=== PATIENT | female | born 1995 | race African-American/Black ===

== ENCOUNTER 2016-10-15 23:39 | Inpatient (IN) | payer BC ==
[~2016-10-15] VITALS: Ht 170.2 cm; Wt 95.3 kg
[~2016-10-15 23:39] MED LIST: HYDROCODON-ACE1 EA15 ORAL; MACROBID100 MG ORAL
[2016-10-15 23:50] VITALS: BP 127/87
[2016-10-16] VITALS (7 sets, daily range): BP systolic 101–122; BP diastolic 46–66
[2016-10-16] MEDS ORDERED: Acetaminophen 500mg (ES) tab ORAL ONE (00:15)
[2016-10-16] MEDS ORDERED: cefTRIAXone 2 GM in NS 110 ML IV SCH (00:15)
[2016-10-16] MEDS ORDERED: Vancomycin 1.5gm/D5W 300ml 325 ML IVPB ONE (00:15)
[2016-10-16] MEDS ORDERED: HYDROmorphone 1mg/ml Carpuject IVP ONE ×2 (00:15→02:15)
[2016-10-16 00:48] LABS: MEAN CORPUSCULAR HEMOGLOBIN 26.1 PG (27.0-31.0); MEAN CORPUSCULAR HGB CONC 33.2 G/DL (32.0-36.0); MEAN CORPUSCULAR VOLUME 79 FL (80-99); PLATELET COUNT 386 K/UL (150-450); RED BLOOD COUNT 4.73 M/UL (4.20-5.40); RED CELL DISTRIBUTION WIDTH 11.8 % (11.6-14.8)
[2016-10-16 00:51] LABS: APPEARANCE,URINE CLEAR; KETONES,URINE 3+ (NEGATIVE); LEUKOCYTE ESTERASE ,URINE NEGATIVE (NEGATIVE); NITRITE,URINE NEGATIVE (NEGATIVE); PH,URINE 8 (4.5-8.0); PROTEIN,URINE 1+ (NEGATIVE); UROBILINOGEN,URINE 4 MG/DL (0.0-1.0)
[2016-10-16 00:59] LABS: INR 1.1 (0.9-1.1); PROTHROMBIN TIME 11.6 SEC (9.30-11.50)
[2016-10-16 01:00] LABS: WHITE BLOOD COUNT 22.5 K/UL (4.8-10.8)
[2016-10-16 01:03] LABS: ALANINE AMINOTRANSFERASE 45 U/L (3-33); ALBUMIN/GLOBULIN RATIO 0.8 (1.0-2.7); ANION GAP 19 (5-15); ASPARTATE AMINO TRANSFERASE 46 U/L (5-40); CALCIUM 8.7 mg/dL (8.6-10.2); CARBON DIOXIDE 21 mEQ/L (20-30); CHLORIDE 93 mEQ/L (98-107); CREATININE 0.7 mg/dL (0.5-0.9); GLOMERULAR FILTRATION RATE > 60 mL/min (>60); HEMOLYSIS 0; POTASSIUM 3.9 mEQ/L (3.4-4.9); SODIUM 133 mEQ/L (135-145); TOTAL PROTEIN 7.1 g/dL (6.6-8.7); TROPONIN I < 0.30 ng/mL (<=0.30)
[2016-10-16 01:11] LABS: BACTERIA,URINE FEW /HPF; SQUAMOUS EPITHELIAL CELL,UR MANY /LPF (NONE/OCC); WBC,URINE 0-2 /HPF (0 - 2)
--- NOTE | 2016-10-16 01:14 | Emergency Room Report ---
History of Present Illness General Chief Complaint: Abdominal Pain Source: Patient Present Illness HPI This is a 21-year-old female with a history significant for Dr. neda neely when she was 16. She was in the hospital for over a month because she has some paralysis with it. She required physical therapy. She covered completely. She presents with chief complaint of any pain. Also complaining of neck and back pain. Onset today. Yesterday she had some cough and headache. She went to another hospital and was told that she had strep throat and sinusitis. She was prescribed a seven-day course of antibiotics. [place] like it was Levaquin since she was only taking it once a day. She woke up today with severe pain. 10 out of 10. Has nausea and vomiting. Any movement hurts. Allergies: Coded Allergies: PENICILLINS (Unverified Allergy, Unknown, 03/03/15) Patient History Past Medical History: see triage record, old chart reviewed Past Surgical History: none Pertinent Family History: none Social History: Denies: smoking Last Menstrual Period: Aug Now: No Immunizations: other Reviewed Nursing Documentation: PMH: Agreed, PSxH: Agreed Nursing Documentation-PMH Past Medical History: No Stated History Review of Systems Constitutional: Reports: fever, weakness Eye: Denies: blurred vision, eye pain ENT: Denies: ear pain, nose congestion, throat swelling Respiratory: Denies: cough, shortness of breath Cardiovascular: Denies: chest pain, palpitations Gastrointestinal: Denies: abdominal pain, diarrhea, nausea, vomiting Musculoskeletal: Denies: back pain, joint pain Skin: Denies: rash Neurological: Reports: headache Endocrine: Denies: increased thirst, increased urine Hematologic/Lymphatic: Denies: easy bruising All Other Systems: negative except mentioned in HPI Physical Exam Vital Signs Date Time Temp Pulse Resp B/P Pulse Ox O2 Delivery O2 Flow Rate FiO2 10/15/16 23:40 97.7 104 16 124/61 97 Room Air vitals with fever of 101 initially Sp02 EP Interpretation: reviewed, normal General Appearance: well appearing, alert, moderate distress Head: normocephalic, atraumatic Eyes: bilateral eye EOMI, bilateral eye PERRL ENT: hearing grossly normal, normal pharynx Neck: tender - Diffuse tenderness Respiratory: chest non-tender, lungs clear, normal breath sounds Cardiovascular #1: regular rate, rhythm, no murmur Gastrointestinal: normal bowel sounds, non tender, no mass, no organomegaly, no bruit, non-distended Musculoskeletal: back normal, normal range of motion Neurologic: alert, oriented x3 Psychiatric: anxious Skin: warm/dry Procedures Lumbar Puncture Consent: Written Location: L4-L5 Anesthesia: 1% Lidocaine Volume Anesthetic (ccs): 10 Prep: bedadine, chlorhexidine Needle Size: 3 1/2 Post-Procedure: recumbent position Attempts: Other - 2 Complications: none Patient Tolerated: Other - I attempted twice but was unsuccessful. Patient is very nervous. Did not want any more attempts. Medical Decision Making Diagnostic Impression: Primary Impression: Sepsis Qualified Codes: A41.9 - Sepsis, unspecified organism Additional Impressions: Headache Qualified Codes: R51 - Headache Meningitis ER Course Patient presents with fever and headache and stiffness. She does have a significant leukocytosis. I treated her as possible meningitis. She's feeling better now. Able to move her neck. Still has significant pain. Was unable to get CSF fluid for testing. When it for IV antibiotics and further workup. She may need CT guided lumbar puncture. Lab Results Impression labs with leukocytosis Rhythm Strip Diag. Results EP Interpretation: yes Rate: 70 Rhythm: NSR, no PVC's, no ectopy Chest X-Ray Diagnostic Results EP Interpretation: Yes Findings: no consolidation, no effusion, no pneumothorax, no acute cardiopulmonary disease Number of Views: 1 CT/MRI/US Diagnostic Results CT/MRI/US Diagnostic Results : Imaging Test Ordered: CT head Impression negative per radiologist Last Vital Signs Date Time Temp Pulse Resp B/P Pulse Ox O2 Delivery O2 Flow Rate FiO2 10/15/16 23:40 97.7 104 16 124/61 97 Room Air Status: improved Disposition: ADMITTED INPATIENT Condition: Stable SILVER SHAFFER M.D. Oct 16, 2016 01:14
[2016-10-16 01:37] LABS: BAND NEUTROPHILS % (MANUAL) 6 % (0-8); BASOPHILS % (MANUAL) 0 % (0-2); EOSINOPHILS % (MANUAL) 0 % (0-3); LYMPHOCYTES % (MANUAL) 12 % (20-45); NEUTROPHILS % (MANUAL) 75 % (45-75); PLATELET ESTIMATE ADEQUATE; PLATELET MORPHOLOGY NORMAL; TOTAL CELLS COUNTED 100
[2016-10-16] MEDS: Morphine Sulfate 2mg/ml Inj IVP PRN ×2 (07:43→08:16)
--- NOTE | 2016-10-16 09:25 | Diagnostic Imaging Report ---
Indication: Headache Technique: Contiguous 5 mm thick transaxial imaging of the head obtained in a Siemens Sensation [address] scanner. Soft tissue and bone windows generated. Total Dose length Product (DLP): [address] Dose Index Volume (CTDIvol): 70.38 mGy Comparison: none Findings: The size and configuration of the cortical sulci, basal cisterns, and ventricles are within normal limits for age. There is no mass effect, midline shift, or edema identified. There is no evidence of acute hemorrhage or abnormal intra-axial or extra-axial fluid collections. The bones and soft tissues are unremarkable. Impression: No mass effect, edema or acute bleed. [facility] has communicated the preliminary results to the Emergency Department. Their findings are largely concordant with this report. The CT scanner at [facility] is accredited by the [employer] and the scans are performed using protocols designed to limit radiation exposure to as low as reasonably achievable to attain images of sufficient resolution adequate for diagnostic evaluation.
[2016-10-16] MEDS: HYDROmorphone 1mg/ml Carpuject IVP PRN ×4 (10:46→22:46)
--- NOTE | 2016-10-16 10:52 | Diagnostic Imaging Report ---
Indication: Dyspnea Comparison: None A single view chest radiograph was obtained. Findings: Cardiomediastinal appearance is within normal limits for age. Pulmonary vascularity is appropriate. The diaphragmatic contour is smooth and costophrenic angles are sharp. No pleural effusions are identified. The bones are unremarkable. Impression: No acute findings
--- NOTE | 2016-10-16 14:31 | Infectious Diseases Prog Note ---
Assessment/Plan Problems: (1) Meningitis Assessment & Plan: no LP was done, and patient refused any further attempt, will order MRI of the brain and cervical spine to rule out infectious process, and start vancomycin, ceftriaxon and acyclovir empirically , and monitor symptoms, recommend neurology consult. too late to give steroids since she already received antibiotics in ED. will screen for herpes with serology (2) Sepsis Assessment & Plan: due to #1, will send blood culture and start wide spectrum antibiotics therapy. (3) Leukocytosis Assessment & Plan: due to the above, await blood culture , continue wide spectrum antibiotics. (4) Headache Assessment & Plan: due to meningitis, continue pain management as per primary. Subjective Allergies: Coded Allergies: PENICILLINS (Unverified Allergy, Unknown, 03/03/15) Objective Vital Signs Last 24 Hour Vital Signs Date Time Temp Pulse Resp B/P Pulse Ox O2 Delivery O2 Flow Rate FiO2 10/16/16 12:00 97.7 88 19 105/59 96 Room Air 10/16/16 08:00 98.1 90 20 104/66 100 Room Air 10/16/16 03:52 99.2 88 17 118/66 100 Room Air 10/16/16 03:45 98.6 83 20 101/51 95 Room Air 10/16/16 03:40 99.2 88 18 119/64 100 Room Air 10/16/16 02:50 99.2 10/16/16 01:50 99.2 90 17 118/66 100 Room Air 10/16/16 01:49 99.2 10/16/16 01:10 99.2 10/15/16 23:50 101.5 107 25 127/87 100 Room Air 10/15/16 23:40 97.7 104 16 124/61 97 Room Air Height (Feet): 5 Height (Inches): 7.00 Weight (Pounds): 210 Microbiology Date/Time Source Procedure Growth Status 10/16/16 01:20 Nasal Nares Influenza Types A,B Antigen (BEN) - Final Complete Laboratory Tests Test 10/16/16 00:35 White Blood Count 22.5 K/UL (4.8-10.8) *H Red Blood Count 4.73 M/UL (4.20-5.40) Hemoglobin 12.4 G/DL (12.0-16.0) Hematocrit 37.2 % (37.0-47.0) Mean Corpuscular Volume 79 FL (80-99) L Mean Corpuscular Hemoglobin 26.1 PG (27.0-31.0) L Mean Corpuscular Hemoglobin Concent 33.2 G/DL (32.0-36.0) Red Cell Distribution Width 11.8 % (11.6-14.8) Platelet Count 386 K/UL (150-450) Mean Platelet Volume 6.0 FL (6.5-10.1) L Neutrophils (%) (Auto) % (45.0-75.0) Lymphocytes (%) (Auto) % (20.0-45.0) Monocytes (%) (Auto) % (1.0-10.0) Eosinophils (%) (Auto) % (0.0-3.0) Basophils (%) (Auto) % (0.0-2.0) Differential Total Cells Counted 100 Neutrophils % (Manual) 75 % (45-75) Lymphocytes % (Manual) 12 % (20-45) L Monocytes % (Manual) 7 % (1-10) Eosinophils % (Manual) 0 % (0-3) Basophils % (Manual) 0 % (0-2) Band Neutrophils 6 % (0-8) Platelet Estimate Adequate Platelet Morphology Normal Red Blood Cell Morphology Normal Prothrombin Time 11.6 SEC (9.30-11.50) H Prothromb Time International Ratio 1.1 (0.9-1.1) Activated Partial Thromboplast Time 36 SEC (23-33) H Urine Color Yellow Urine Appearance Clear Urine pH 8 (4.5-8.0) Urine Specific [place] 1.015 (1.005-1.035) Urine Protein 1+ (NEGATIVE) H Urine Glucose (UA) Negative (NEGATIVE) Urine Ketones 3+ (NEGATIVE) H Urine Occult Blood 1+ (NEGATIVE) H Urine Nitrite Negative (NEGATIVE) Urine Bilirubin Negative (NEGATIVE) Urine Urobilinogen 4 MG/DL (0.0-1.0) H Urine Leukocyte Esterase Negative (NEGATIVE) Urine RBC 2-4 /HPF (0 - 2) H Urine WBC 0-2 /HPF (0 - 2) Urine Squamous Epithelial Cells Many /LPF (NONE/OCC) H Urine Bacteria Few /HPF (NONE) Urine HCG, Qualitative Negative CSF Herpes Simplex II DNA (PCR) Pending Sodium Level 133 mEQ/L (135-145) L Potassium Level 3.9 mEQ/L (3.4-4.9) Chloride Level 93 mEQ/L (98-107) L Carbon Dioxide Level 21 mEQ/L (20-30) Anion Gap 19 (5-15) H Blood Urea Nitrogen 7 mg/dL (7-23) Creatinine 0.7 mg/dL (0.5-0.9) Estimat Glomerular Filtration Rate > 60 mL/min (>60) Glucose Level 112 mg/dL (74-106) H Lactic Acid Level 0.80 mmol/L (0.66-2.22) Calcium Level 8.7 mg/dL (8.6-10.2) Total Bilirubin 0.4 mg/dL (0.0-1.2) Aspartate Amino Transf (AST/SGOT) 46 U/L (5-40) H Alanine Aminotransferase (ALT/SGPT) 45 U/L (3-33) H Alkaline Phosphatase 122 U/L (35-104) H Troponin I < 0.30 ng/mL (<=0.30) Total Protein 7.1 g/dL (6.6-8.7) Albumin 3.3 g/dL (3.5-5.2) L Globulin 3.8 g/dL Albumin/Globulin Ratio 0.8 (1.0-2.7) L Herpes Simplex Virus I IgM Ab (IFA) Pending Herpes Simplex Virus II IgM Ab (IFA Pending Herpes Simplex Virus I DNA (PCR) Pending Current Medications Medications (Trade) Dose Ordered Sig/Jw Route PRN Reason Start Time Stop Time Status Last Admin Dose Admin Acyclovir/Dextrose (Zovirax/D5W) 275 ml @ 275 mls/hr Q8HR IV 10/16/16 15:00 11/15/16 14:59 Ceftriaxone Sodium 2 gm/ Dextrose 110 ml @ 220 mls/hr EVERY 12 HOURS IVPB 10/16/16 14:30 10/23/16 14:29 Hydromorphone HCl 1 mg 1 mg Q4H PRN IVP For Pain 10/16/16 10:45 10/23/16 10:44 10/16/16 10:46 Ondansetron HCl (Zofran) 4 mg Q6H PRN IVP Nausea & Vomiting 10/16/16 07:30 11/15/16 07:29 10/16/16 07:46 Sodium Chloride 1,000 ml @ 100 mls/hr Q10H IV 10/16/16 11:00 11/15/16 10:59 10/16/16 11:35 Vancomycin HCl (Vanco rx to dose) 1 ea DAILY PRN MISC . 10/16/16 13:15 11/15/16 13:14 Vancomycin HCl 1 gm/Dextrose 275 ml @ 183.708 mls/hr Q8HR IVPB 10/16/16 15:00 10/21/16 14:59 Aliyah Cervantes M.D. Oct 16, 2016 14:31
[2016-10-16] MEDS: cefTRIAXone 2 GM in D5W 110 ML IVPB SCH ×2 (14:42→21:27)
[2016-10-16] MEDS: ACYCLOVIR IV SCH ×2 (16:30→22:04)
[2016-10-16] MEDS: D5W IV SCH ×2 (16:30→22:04)
[2016-10-16] MEDS: Cyclobenzaprine 10mg Tab ORAL SCH (18:25)
[2016-10-16] MEDS: Vancomycin 1 GM in D5W 275 ML IVPB SCH ×2 (18:27→22:05)
--- NOTE | 2016-10-16 19:49 | Consultation ---
DATE OF CONSULTATION: REQUESTING PHYSICIAN: Skip Rod M.D. REASON FOR CONSULTATION: Headache, leukocytosis, neck pain, possible meningitis. Recommendation for antibiotic therapy. family. HISTORY OF PRESENT ILLNESS: The patient is a 21-year-old female with history of meningitis when she was 16 presented to [facility] for worsening headache, neck pain, and sore throat. The patient was seen in urgent care and she was told that she had a strep throat and sinusitis. She was given Levaquin oral antibiotic therapy for seven days course and discharged home. Her headache and neck stiffness did not improve at all but got worse. She developed fever of 102.8 with stiffness in her neck to the point that she could not move it. She also had photophobia so she came into the emergency room at [facility] for further evaluation and management. Multiple attempts for LP was failed in the emergency room and the patient refused any further attempts. She had a head CT scan did not show any acute pathology. The patient received antibiotics in the emergency room and I was consulted by the primary provider for antibiotics recommendation and further management. The patient denied any recent travel or sick contacts. She had similar symptom when she was 16 and she was treated for meningitis and spend one month almost in the hospital. REVIEW OF SYSTEMS: A 14-point of systems reviewed were all negative apart from the one I mentioned above in my history and physical PAST MEDICAL HISTORY: Significant for meningitis at the age of 16 otherwise unremarkable. PAST SURGICAL HISTORY: Negative. MEDICATIONS: The patient received vancomycin and ceftriaxone in the emergency room. For the rest of the medications please refer to MAR ALLERGIES: She is allergic to penicillin with rash, and blisters. SOCIAL HISTORY: She works as a bar manager. Denied using any tobacco, drugs, or alcohol. FAMILY HISTORY: Negative for recurrent infection or immunocompromised condition. PHYSICAL EXAMINATION: VITAL SIGNS: Temperature 97.7, pulse 88, respiratory rate 19, blood pressure 105/59, O2 saturation 96% on room air. GENERAL: This is a young female, obese, lying in bed, complaining of headache and stiffness in her neck. Alert in pain, not in acute distress. HEENT: Normocephalic and atraumatic. Pupil could not evaluate reactivity due to photophobia. Moist oral mucosa. No exudate or thrush. Normal tonsils. No ulceration. NECK: Stiff and tender with decreased range of motion. No lymphadenopathy. CARDIOVASCULAR: Regular rate and rhythm. No murmur or gallop. LUNGS: Clear bilaterally. Decreased breathing sound on the bases. No wheezing or rhonchi. ABDOMEN: Soft. Not tender or distended. Positive bowel sounds. No hepatosplenomegaly or ascites. EXTREMITIES: No edema or cyanosis. NEUROLOGIC: Unable to perform, the refused to cooperate with the neuro exam. LABORATORY DATA: White count 22.5, hemoglobin 12.4, hematocrit 37.2, and platelet count of 386,000. BUN 7 creatinine 0.7. AST 46, ALT 45, alkaline phosphatase 122. Urinalysis showed negative nitrite, negative leukocyte esterase, many squamous epithelial cells, and negative nitrate. Microbiology screening for influenza A and B was negative. Imaging, head CT scan showed no mass effect, edema, or acute bleed. Chest x-ray showed no acute findings. ASSESSMENT AND PLAN: 1. Acute meningitis with headache, neck stiffness and photophobia. No evidence of bleeding intracranially on CT scan. No LP was done unfortunately. We will order MRI of the brain and cervical spine to rule out infectious process and start the patient empirically on ceftriaxone and vancomycin and acyclovir. We will send serology for herpes hoping that will help to make a diagnosis. We will monitor her symptoms closely. We will recommend Neurology consultation. At this point, too late to give steroid since already received antibiotics in the emergency room. Continue neuro checks. 2. Sepsis due to acute meningitis. Send blood culture. Continue wide-spectrum antibiotics therapy. 3. Leukocytosis due to the above. Monitor WBC and culture. Continue antibiotics. 4. Headache with neck stiffness due to possible meningitis. Continue pain management as primary provider and we will image the brain and the neck with an MRI to rule out any acute infectious process. Thank you for the consultation. Aliyah Cervantes M.D. DR: Jaky JOB#: [id number] CC: PILAR
--- NOTE | 2016-10-16 21:01 | Nephrology Progress Note ---
Assessment/Plan Problem List: (1) Leukocytosis (2) Sepsis (3) Meningitis (4) Headache Plan ID consult. Empiric abx. f/u cx's. Pending MRI. Pain management. Neuro consult. Subjective Subjective 21 y/o f with a hx of meningitis who presented to the ED c/o fever, worsening headache, neck pain and sore throat. Patient was empirically treated for strep throat with levofloxacin with no relief. She also reports photophobia. LP was attempted in the ED but was unsuccessful. Patient was given empiric abx and admitted for further care. Objective Objective Last 24 Hour Vital Signs Date Time Temp Pulse Resp B/P Pulse Ox O2 Delivery O2 Flow Rate FiO2 10/16/16 19:17 97.7 10/16/16 19:17 97.7 10/16/16 19:17 97.7 10/16/16 19:00 100.0 72 20 122/50 100 Room Air 10/16/16 16:00 98.1 84 20 107/46 99 Room Air 10/16/16 12:00 97.7 88 19 105/59 96 Room Air 10/16/16 08:00 98.1 90 20 104/66 100 Room Air 10/16/16 03:52 99.2 88 17 118/66 100 Room Air 10/16/16 03:45 98.6 83 20 101/51 95 Room Air 10/16/16 03:40 99.2 88 18 119/64 100 Room Air 10/16/16 02:50 99.2 10/16/16 01:50 99.2 90 17 118/66 100 Room Air 10/16/16 01:49 99.2 10/16/16 01:10 99.2 10/15/16 23:50 101.5 107 25 127/87 100 Room Air 10/15/16 23:40 97.7 104 16 124/61 97 Room Air Intake and Output 10/15/16 10/16/16 19:00 07:00 Intake Total 110 ml Balance 110 ml Intake Oral 0 ml IV Total 110 ml # Voids 2 Laboratory Tests 10/16/16 00:35: White Blood Count 22.5*H, Red Blood Count 4.73, Hemoglobin 12.4, Hematocrit 37.2 , Mean Corpuscular Volume 79L, Mean Corpuscular Hemoglobin 26.1L, Mean Corpuscular Hemoglobin Concent 33.2, Red Cell Distribution Width 11.8, Platelet Count 386, Mean Platelet Volume 6.0L, Neutrophils (%) (Auto) , Lymphocytes (%) ( Auto) , Monocytes (%) (Auto) , Eosinophils (%) (Auto) , Basophils (%) (Auto) , Differential Total Cells Counted 100, Neutrophils % (Manual) 75, Lymphocytes % ( Manual) 12L, Monocytes % (Manual) 7, Eosinophils % (Manual) 0, Basophils % ( Manual) 0, Band Neutrophils 6, Platelet Estimate Adequate, Platelet Morphology Normal, Red Blood Cell Morphology Normal, Prothrombin Time 11.6H, Prothromb Time International Ratio 1.1, Activated Partial Thromboplast Time 36H, Urine Color Yellow, Urine Appearance Clear, Urine pH 8, Urine Specific [place] 1.015, Urine Protein 1+H, Urine Glucose (UA) Negative, Urine Ketones 3+H, Urine Occult Blood 1+H, Urine Nitrite Negative, Urine Bilirubin Negative, Urine Urobilinogen 4H, Urine Leukocyte Esterase Negative, Urine RBC 2-4H, Urine WBC 0-2, Urine Squamous Epithelial Cells ManyH, Urine Bacteria Few, Urine HCG, Qualitative Negative, CSF Herpes Simplex II DNA (PCR) [Pending], Sodium Level 133L, Potassium Level 3.9, Chloride Level 93L, Carbon Dioxide Level 21, Anion Gap 19H , Blood Urea Nitrogen 7, Creatinine 0.7, Estimat Glomerular Filtration Rate > 60 , Glucose Level 112H, Lactic Acid Level 0.80, Calcium Level 8.7, Total Bilirubin 0.4, Aspartate Amino Transf (AST/SGOT) 46H, Alanine Aminotransferase ( ALT/SGPT) 45H, Alkaline Phosphatase 122H, Troponin I < 0.30, Total Protein 7.1, Albumin 3.3L, Globulin 3.8, Albumin/Globulin Ratio 0.8L, Herpes Simplex Virus I IgM Ab (IFA) [Pending], Herpes Simplex Virus II IgM Ab (IFA [Pending], Herpes Simplex Virus I DNA (PCR) [Pending] Height (Feet): 5 Height (Inches): 7.00 Weight (Pounds): 210 General Appearance: no apparent distress Cardiovascular: normal rate, regular rhythm Respiratory/Chest: lungs clear Abdomen: non tender, soft Extremities: non-pitting Neurologic: alert CLAUDIA PAIGE Oct 16, 2016 21:01
--- NOTE | 2016-10-16 21:39 | History and Physical Report ---
DATE OF ADMISSION: 10/16/2016 HISTORY OF PRESENT ILLNESS: This is an elderly 21 years old female, who came to the emergency room with severe headache, nausea, vomiting, unable to tolerate diet, and also complained severe neck pain. PAST MEDICAL HISTORY: Significant for dysmenorrhea. ALLERGIES: No known allergies. FAMILY HISTORY: Noncontributory. SOCIAL HISTORY: The patient lives with mother. Denies any smoking and drinking. Denies any illegal drugs REVIEW OF SYSTEMS: Feeling excruciating neck pain for the last three days. No fever. No chills. Having also migraine headache and with recurrent nausea and vomiting. PHYSICAL EXAMINATION: GENERAL: This is a young female who is currently awake and comfortable and has been sleeping well. VITAL SIGNS: Blood pressure is 100/40, pulse 110, respirations 18, no fever. SKIN: Good skin turgor. HEENT: AT/NC. EOMI. PERRLA. NECK: Supple. No JVD. CHEST: Bilaterally clear. CARDIOVASCULAR: Regular rhythm. No gallop. No murmur. ABDOMEN: Soft. Positive bowel sounds. Nontender. EXTREMITIES: CCE. NEUROLOGICAL: No focal deficit. LABORATORY DATA: White count is normal. ASSESSMENT: 1. Severe intractable headache, unlikely meningitis. 2. Overweight. We will admit on the medical floor. 3. Nausea and vomiting. 4. Dehydration. PLAN: We will admit on medical floor. Start IV fluids, IV Zofran. Pain Medicine and PT/OT. Also, added Neurontin and gabapentin. Cruz Capone M.D. DR: ADILENE JOB#: [id number] CC:
[2016-10-17] VITALS: BP 115/64
[2016-10-17] MEDS: HYDROmorphone 1mg/ml Carpuject IVP PRN ×6 (02:45→23:09)
[2016-10-17] MEDS: ACYCLOVIR IV SCH ×3 (05:22→22:49)
[2016-10-17] MEDS: D5W IV SCH ×3 (05:22→22:49)
[2016-10-17] MEDS: Vancomycin 1 GM in D5W 275 ML IVPB SCH ×3 (05:22→14:00)
[2016-10-17 08:00] VITALS: BP 116/63
[2016-10-17] MEDS: cefTRIAXone 2 GM in D5W 110 ML IVPB SCH ×2 (09:15→20:04)
[2016-10-17] MEDS: Cyclobenzaprine 10mg Tab ORAL SCH ×2 (09:16→17:54)
[2016-10-17] MEDS ORDERED: Tubing IV Secondary IV ONE ×2 (10:32→10:33)
[2016-10-17] MEDS ORDERED: 1/2 NS 1000ml IV ONE ×2 (10:32→15:55)
[2016-10-17] MEDS ORDERED: NS 275ml ONE (10:33)
[2016-10-17 12:00] VITALS: BP 139/71
--- NOTE | 2016-10-17 13:39 | Progress Note ---
DATE: 10/17/2016 NOTE: "POOR AUDIO QUALITY" OBJECTIVE: The patient is a young female, who is currently in bed. Comfortable. neck pain and headache is improved. Improved blood pressure. VITAL SIGNS: Stable. CHEST: Bilaterally clear. CARDIOVASCULAR: Regular rhythm. ABDOMEN: Soft. EXTREMITIES: No CCE NEUROLOGIC: No focal deficit. ASSESSMENT AND PLAN: 1. Neck pain. 2. neuralgia. 3. Meningismus. 4. Obesity. We will currently continue Neurontin. Continue Flexeril. Continue Dilaudid for pain. PT and OT. Regular diet. All discussed with the charge nurse. The patient also complaining of heartburn. We will give her Mylanta. Follow up the laboratory. Cruz Capone M.D. DR: Carolyn JOB#: [id number] CC:
[2016-10-17 16:00] VITALS: BP 132/55
[2016-10-17] MEDS: Vancomycin 1.5 GM in D5W 325 ML IVPB SCH ×2 (16:07→23:59)
--- NOTE | 2016-10-17 17:11 | Infectious Diseases Prog Note ---
Assessment/Plan Problems: (1) Meningitis Assessment & Plan: improving with current antibiotics regimen, LP was not done in ED, and patient refused any further attempt, MRI of the brain and cervical spine to rule out infectious process is pending , continue vancomycin , ceftriaxon and acyclovir empirically , and monitor symptoms, recommend neurology consult. too late to give steroids since she already received antibiotics in ED. will screen for herpes with serology (2) Sepsis Assessment & Plan: due to #1, will send blood culture and start wide spectrum antibiotics therapy. (3) Leukocytosis Assessment & Plan: due to the above, await blood culture , continue wide spectrum antibiotics. (4) Headache Assessment & Plan: due to meningitis, continue pain management as per primary. Subjective Constitutional: Reports: anorexia HEENT: Reports: other - photophobia Gastrointestinal/Abdominal: Reports: constipation, nausea Neurologic: Reports: headache, other - neck stiffness, weakness Musculoskeletal: Reports: pain Allergies: Coded Allergies: PENICILLINS (Unverified Allergy, Unknown, 03/03/15) Objective Vital Signs Last 24 Hour Vital Signs Date Time Temp Pulse Resp B/P Pulse Ox O2 Delivery O2 Flow Rate FiO2 10/17/16 15:16 98.1 10/17/16 12:00 98.1 70 20 139/71 100 Room Air 10/17/16 10:15 97.5 10/17/16 10:15 97.5 10/17/16 08:00 97.5 81 19 116/63 98 Room Air 10/17/16 00:00 98.9 82 22 115/64 100 Room Air 10/16/16 19:00 100.0 72 20 122/50 100 Room Air Height (Feet): 5 Height (Inches): 7.00 Weight (Pounds): 210 General Appearance: WD/WN, no acute distress HEENT: normocephalic, atraumatic, anicteric, mucous membranes moist Respiratory/Chest: chest wall non-tender, lungs clear, normal breath sounds, no respiratory distress, no accessory muscle use Cardiovascular: normal peripheral pulses, normal rate, regular rhythm, no gallop/murmur, no JVD Abdomen: normal bowel sounds, soft, non tender, no organomegaly, non distended , no mass, no scars Extremities: no cyanosis, no clubbing Skin: no rash, no lesions Neurologic/Psychiatric: prestidigitator II-XII grossly normal, no motor/sensory deficits, alert, oriented x 3, responsive Microbiology Date/Time Source Procedure Growth Status 10/15/16 23:05 Blood Blood Culture - Preliminary NO GROWTH AFTER 24 HOURS Resulted 10/15/16 23:05 Blood Blood Culture - Preliminary NO GROWTH AFTER 24 HOURS Resulted 10/16/16 01:20 Nasal Nares Influenza Types A,B Antigen (BEN) - Final Complete Laboratory Tests Test 10/17/16 13:40 Vancomycin Level Trough 6.0 ug/mL (5.0-12.0) Current Medications Medications (Trade) Dose Ordered Sig/Jw Route PRN Reason Start Time Stop Time Status Last Admin Dose Admin Acyclovir/Dextrose (Zovirax/D5W) 275 ml @ 275 mls/hr Q8HR IV 10/16/16 15:00 11/15/16 14:59 10/17/16 13:17 Al Hydroxide/Mg Hydroxide 30 ml 30 ml Q6H PRN ORAL HEART BURN 10/17/16 11:30 11/16/16 11:29 Ceftriaxone Sodium 2 gm/ Dextrose 110 ml @ 220 mls/hr EVERY 12 HOURS IVPB 10/16/16 14:30 10/23/16 14:29 10/17/16 09:15 Cyclobenzaprine HCl (Flexeril) 10 mg BID ORAL 10/16/16 18:00 11/15/16 17:59 10/17/16 09:16 Gabapentin (Neurontin) 600 mg BID ORAL 10/16/16 18:00 11/15/16 17:59 10/17/16 09:16 Hydromorphone HCl 1 mg 1 mg Q4H PRN IVP For Pain 10/16/16 10:45 10/23/16 10:44 10/17/16 14:46 Ondansetron HCl (Zofran) 4 mg Q6H PRN IVP Nausea & Vomiting 10/16/16 07:30 11/15/16 07:29 10/17/16 02:54 Sodium Chloride 1,000 ml @ 100 mls/hr Q10H IV 10/16/16 11:00 11/15/16 10:59 10/17/16 05:37 Vancomycin HCl (Vanco rx to dose) 1 ea DAILY PRN MISC . 10/16/16 13:15 11/15/16 13:14 Vancomycin HCl/ Dextrose (Vancomycin/D5W) 325 ml @ 217.109 mls/hr Q8H IVPB 10/17/16 16:00 10/22/16 15:59 10/17/16 16:07 Aliyah Cervantes M.D. Oct 17, 2016 17:11
[2016-10-17 20:21] VITALS: BP 121/68
--- NOTE | 2016-10-17 23:11 | Nephrology Progress Note ---
Assessment/Plan Problem List: (1) Leukocytosis (2) Sepsis (3) Meningitis (4) Headache Plan ID following. on droplet precautions. Empiric abx. f/u cx's. Pending MRI. Pain management. Neuro consult. Subjective Subjective afebrile. still with headache but better. Objective Objective Last 24 Hour Vital Signs Date Time Temp Pulse Resp B/P Pulse Ox O2 Delivery O2 Flow Rate FiO2 10/17/16 20:21 98.1 74 20 121/68 99 Room Air 10/17/16 18:53 98.1 10/17/16 18:53 98.1 10/17/16 18:53 98.1 10/17/16 16:00 98.1 82 19 132/55 100 Room Air 10/17/16 12:00 98.1 70 20 139/71 100 Room Air 10/17/16 08:00 97.5 81 19 116/63 98 Room Air 10/17/16 00:00 98.9 82 22 115/64 100 Room Air Intake and Output 10/16/16 10/17/16 19:00 07:00 Intake Total 905 ml 1763.705 ml Output Total 2 ml Balance 903 ml 1763.705 ml Intake Oral 120 ml 720 ml IV Total 785 ml 1043.705 ml Output Urine Total 2 ml # Voids 5 Laboratory Tests 10/17/16 13:40: Vancomycin Level Trough 6.0 Height (Feet): 5 Height (Inches): 7.00 Weight (Pounds): 210 General Appearance: no apparent distress Cardiovascular: normal rate, regular rhythm Respiratory/Chest: lungs clear Abdomen: non tender, soft CLAUDIA PAIGE Oct 17, 2016 23:11
[2016-10-18] VITALS: BP 114/56
[2016-10-18] MEDS: HYDROmorphone 1mg/ml Carpuject IVP PRN ×5 (03:03→21:12)
[2016-10-18 04:59] VITALS: BP 124/73
[2016-10-18] MEDS: ACYCLOVIR IV SCH ×3 (05:25→21:12)
[2016-10-18] MEDS: D5W IV SCH ×3 (05:25→21:12)
[2016-10-18 07:05] LABS: BASOPHILS % (AUTO) 0.4 % (0.0-2.0); EOSINOPHILS % (AUTO) 1.4 % (0.0-3.0); LYMPHOCYTES % (AUTO) 21.2 % (20.0-45.0); MEAN CORPUSCULAR HEMOGLOBIN 25.8 PG (27.0-31.0); MEAN CORPUSCULAR HGB CONC 32.5 G/DL (32.0-36.0); MEAN CORPUSCULAR VOLUME 79 FL (80-99); MEAN PLATELET VOLUME 5.7 FL (6.5-10.1); MONOCYTES % (AUTO) 10.5 % (1.0-10.0); NEUTROPHILS % (AUTO) 66.5 % (45.0-75.0); PLATELET COUNT 423 K/UL (150-450); RED BLOOD COUNT 4.57 M/UL (4.20-5.40); RED CELL DISTRIBUTION WIDTH 12.1 % (11.6-14.8); WHITE BLOOD COUNT 14.6 K/UL (4.8-10.8)
[2016-10-18] MEDS: Cyclobenzaprine 10mg Tab ORAL SCH ×2 (07:30→17:51)
[2016-10-18] MEDS: cefTRIAXone 2 GM in D5W 110 ML IVPB SCH (07:30)
[2016-10-18 07:37] LABS: ANION GAP 12 (5-15); CALCIUM 8.9 mg/dL (8.6-10.2); CARBON DIOXIDE 28 mEQ/L (20-30); CHLORIDE 97 mEQ/L (98-107); CREATININE 0.8 mg/dL (0.5-0.9); GLOMERULAR FILTRATION RATE > 60 mL/min (>60); HEMOLYSIS 0; SODIUM 137 mEQ/L (135-145)
[2016-10-18 08:10] VITALS: BP 123/52
[2016-10-18] MEDS: Vancomycin 1.5 GM in D5W 325 ML IVPB SCH ×2 (08:48→16:04)
--- NOTE | 2016-10-18 13:51 | Nephrology Progress Note ---
Assessment/Plan Problem List: (1) Headache (2) Leukocytosis (3) Sepsis (4) Meningitis Plan ID F/U Continue abx per ID Empiric abx. Pending MRI. result Continue pain management. AM labs Subjective Constitutional: Denies: chills, diaphoresis, fever, malaise, no symptoms, other , weakness HEENT: Reports: other - c/o headache Genitourinary: Denies: burning, discharge, flank pain, frequency, hematuria, incontinence, no symptoms, other, pain, urgency Neurologic/Psychiatric: Reports: headache Subjective In bed, states that she just got back from MRI and that she has a headache Objective Objective Last 24 Hour Vital Signs Date Time Temp Pulse Resp B/P Pulse Ox O2 Delivery O2 Flow Rate FiO2 10/18/16 11:49 97.7 10/18/16 08:10 97.7 71 20 123/52 99 Room Air 10/18/16 08:01 97.7 10/18/16 08:01 97.7 10/18/16 04:59 99.0 85 20 124/73 99 Room Air 10/18/16 00:00 96.0 83 22 114/56 98 Room Air 10/17/16 20:21 98.1 74 20 121/68 99 Room Air 10/17/16 16:00 98.1 82 19 132/55 100 Room Air Intake and Output 10/17/16 10/18/16 19:00 07:00 Intake Total 1705.000 ml 1875.000 ml Balance 1705.000 ml 1875.000 ml Intake Oral 360 ml 240 ml IV Total 1345.000 ml 1635.000 ml # Voids 5 7 Laboratory Tests 10/18/16 06:10: White Blood Count 14.6H, Red Blood Count 4.57, Hemoglobin 11.8L, Hematocrit 36.3L, Mean Corpuscular Volume 79L, Mean Corpuscular Hemoglobin 25.8L, Mean Corpuscular Hemoglobin Concent 32.5, Red Cell Distribution Width 12.1, Platelet Count 423, Mean Platelet Volume 5.7L, Neutrophils (%) (Auto) 66.5, Lymphocytes ( %) (Auto) 21.2, Monocytes (%) (Auto) 10.5H, Eosinophils (%) (Auto) 1.4, Basophils (%) (Auto) 0.4, Sodium Level 137, Potassium Level 4.0, Chloride Level 97L, Carbon Dioxide Level 28, Anion Gap 12, Blood Urea Nitrogen 4L, Creatinine 0.8, Estimat Glomerular Filtration Rate > 60, Glucose Level 128H, Calcium Level 8.9 Height (Feet): 5 Height (Inches): 7.00 Weight (Pounds): 210 General Appearance: alert EENT: normal ENT inspection Neck: normal alignment, supple, normal inspection Cardiovascular: regular rhythm, no JVD Respiratory/Chest: lungs clear, normal breath sounds, no respiratory distress Abdomen: non tender, soft, no organomegaly Extremities: non-tender, normal inspection, no calf tenderness Neurologic: alert, oriented x 3, responsive, normal mood/affect Virginie Hernandez N.P. Oct 18, 2016 13:50
--- NOTE | 2016-10-18 14:06 | Diagnostic Imaging Report ---
Indication: Severe headache and neck pain. Technique: The head was imaged in a 1.5 Olamide magnet. Sequences obtained include sagittal and axial T1 FLAIR, axial T2 fast spin echo with fat saturation, axial T2 FLAIR, diffusion and ADC map. Gadolinium-enhanced axial and coronal T1 FLAIR obtained also. Comparison: None Findings: The size, contour, and configuration of the sulci, ventricles, and basal cisterns appear normal. Otto-white differentiation is normal. There is no restricted diffusion. There is no mass effect, midline shift, edema, or hemorrhage. There are no abnormal extra-axial or intra-axial fluid collections. The corpus callosum is unremarkable. The brainstem and cerebellum are unremarkable. The sella is unremarkable. Bone marrow signal within the visualized osseous structures appears age appropriate and unremarkable otherwise. Mucosal thickening noted in ethmoid sinus cells sinusitis. No abnormal enhancement is identified. Impression: Negative MRI brain with and without contrast. Mild sinusitis
--- NOTE | 2016-10-18 14:38 | Diagnostic Imaging Report ---
Indication: Neck pain and severe headache Technique: MRI examination of the cervical spine was performed in a 1.5 Olamide magnet. Sequences obtained include sagittal and axial T1 and T2 fast spin echo, and sagittal STIR. Sagittal and axial T1 fast spin-echo with fat saturation obtained after intravenous gadolinium administration. Comparison: none Findings: Bone marrow signal and alignment are normal. The configuration and height of the vertebral bodies and intervertebral discs are normal. There is no epidural fluid collection, cord or neural impingement identified. The spinal cord is normal in appearance. Anterior to the upper part of the cervical spine from about C1 arch to C5 there is T2 hyperintense retropharyngeal edema versus fluid collection. Nature of this is unknown, but retropharyngeal abscess is the main consideration. Evaluation with contrast-enhanced CT of the neck is recommended. Impression: Retropharyngeal edema versus abscess C1-C5. Further evaluation with contrast-enhanced CT of the neck is recommended. Normal cervical spine
[2016-10-18 16:00] VITALS: BP 97/72
--- NOTE | 2016-10-18 17:17 | Infectious Diseases Prog Note ---
Assessment/Plan Problems: (1) Meningitis Assessment & Plan: improving with current antibiotics regimen, LP was not done in ED, and patient refused any further attempt, MRI of the brain was normal, but cervical spine MRI showed possible retropharyngeal abscess , so will order neck CT with contrast, and broaden her antibiotics regimen to include cefepime and flagyl, and continue vancomycin with acyclovir for now, she agreed to have LP done by IR today . recommend neurology and ENT consult. (2) Sepsis Assessment & Plan: due to #1, will send blood culture and start wide spectrum antibiotics therapy. (3) Leukocytosis Assessment & Plan: due to the above, await blood culture , continue wide spectrum antibiotics. (4) Headache Assessment & Plan: due to meningitis, continue pain management as per primary. (5) Retropharyngeal abscess Assessment & Plan: will order CT neck with contrast to confirm, and broaden antibiotics regimen, recommend ENT consult Subjective Constitutional: Reports: anorexia, fatigue HEENT: Reports: congestion, other - stiff neck, and headache Gastrointestinal/Abdominal: Reports: nausea, vomiting Neurologic: Reports: headache, weakness Musculoskeletal: Reports: pain Allergies: Coded Allergies: PENICILLINS (Unverified Allergy, Unknown, 03/03/15) Objective Vital Signs Last 24 Hour Vital Signs Date Time Temp Pulse Resp B/P Pulse Ox O2 Delivery O2 Flow Rate FiO2 10/18/16 16:00 98.1 76 18 97/72 99 Room Air 10/18/16 11:49 97.7 10/18/16 08:10 97.7 71 20 123/52 99 Room Air 10/18/16 08:01 97.7 10/18/16 08:01 97.7 10/18/16 04:59 99.0 85 20 124/73 99 Room Air 10/18/16 00:00 96.0 83 22 114/56 98 Room Air 10/17/16 20:21 98.1 74 20 121/68 99 Room Air Height (Feet): 5 Height (Inches): 7.00 Weight (Pounds): 210 General Appearance: WD/WN, no acute distress HEENT: normocephalic, atraumatic, anicteric, mucous membranes moist Respiratory/Chest: chest wall non-tender, lungs clear, normal breath sounds, no respiratory distress, no accessory muscle use Cardiovascular: normal peripheral pulses, normal rate, regular rhythm, no gallop/murmur, no JVD Abdomen: normal bowel sounds, soft, non tender, no organomegaly, non distended , no mass Extremities: no cyanosis, no clubbing Skin: no rash, no lesions, no ulcers Neurologic/Psychiatric: alert, oriented x 3, responsive, normal mood/affect Microbiology Date/Time Source Procedure Growth Status 10/15/16 23:05 Blood Blood Culture - Preliminary NO GROWTH AFTER 48 HOURS Resulted 10/15/16 23:05 Blood Blood Culture - Preliminary NO GROWTH AFTER 48 HOURS Resulted 10/16/16 01:20 Nasal Nares Influenza Types A,B Antigen (BEN) - Final Complete Laboratory Tests Test 10/18/16 06:10 White Blood Count 14.6 K/UL (4.8-10.8) H Red Blood Count 4.57 M/UL (4.20-5.40) Hemoglobin 11.8 G/DL (12.0-16.0) L Hematocrit 36.3 % (37.0-47.0) L Mean Corpuscular Volume 79 FL (80-99) L Mean Corpuscular Hemoglobin 25.8 PG (27.0-31.0) L Mean Corpuscular Hemoglobin Concent 32.5 G/DL (32.0-36.0) Red Cell Distribution Width 12.1 % (11.6-14.8) Platelet Count 423 K/UL (150-450) Mean Platelet Volume 5.7 FL (6.5-10.1) L Neutrophils (%) (Auto) 66.5 % (45.0-75.0) Lymphocytes (%) (Auto) 21.2 % (20.0-45.0) Monocytes (%) (Auto) 10.5 % (1.0-10.0) H Eosinophils (%) (Auto) 1.4 % (0.0-3.0) Basophils (%) (Auto) 0.4 % (0.0-2.0) Sodium Level 137 mEQ/L (135-145) Potassium Level 4.0 mEQ/L (3.4-4.9) Chloride Level 97 mEQ/L (98-107) L Carbon Dioxide Level 28 mEQ/L (20-30) Anion Gap 12 (5-15) Blood Urea Nitrogen 4 mg/dL (7-23) L Creatinine 0.8 mg/dL (0.5-0.9) Estimat Glomerular Filtration Rate > 60 mL/min (>60) Glucose Level 128 mg/dL (74-106) H Calcium Level 8.9 mg/dL (8.6-10.2) Current Medications Medications (Trade) Dose Ordered Sig/Jw Route PRN Reason Start Time Stop Time Status Last Admin Dose Admin Acyclovir/Dextrose (Zovirax/D5W) 275 ml @ 275 mls/hr Q8HR IV 10/16/16 15:00 11/15/16 14:59 10/18/16 14:28 Al Hydroxide/Mg Hydroxide 30 ml 30 ml Q6H PRN ORAL HEART BURN 10/17/16 11:30 11/16/16 11:29 10/18/16 00:58 Cyclobenzaprine HCl (Flexeril) 10 mg BID ORAL 10/16/16 18:00 11/15/16 17:59 10/18/16 07:30 Gabapentin (Neurontin) 600 mg BID ORAL 10/16/16 18:00 11/15/16 17:59 10/18/16 07:30 Hydromorphone HCl 1 mg 1 mg Q4H PRN IVP For Pain 10/16/16 10:45 10/23/16 10:44 10/18/16 16:05 Ondansetron HCl (Zofran) 4 mg Q6H PRN IVP Nausea & Vomiting 10/16/16 07:30 11/15/16 07:29 10/18/16 13:27 Sodium Chloride 1,000 ml @ 100 mls/hr Q10H IV 10/16/16 11:00 11/15/16 10:59 10/17/16 20:04 Vancomycin HCl (Vanco rx to dose) 1 ea DAILY PRN MISC . 10/16/16 13:15 11/15/16 13:14 Vancomycin HCl/ Dextrose (Vancomycin/D5W) 325 ml @ 217.109 mls/hr Q8H IVPB 10/17/16 16:00 10/22/16 15:59 10/18/16 16:04 Aliyah Cervantes M.D. Oct 18, 2016 17:17
[2016-10-18] MEDS: Cefepime HCl 2 GM in D5W 110 ML IVPB SCH (18:52)
[2016-10-18] MEDS: metroNIDAZOLE 500mg 100 ML IVPB SCH ×2 (19:45→22:34)
[2016-10-18 20:00] VITALS: BP 122/72
--- NOTE | 2016-10-18 20:38 | Progress Note ---
SUBJECTIVE: This is a 21-year-old female, who has a recurrent nausea, vomiting, headache, and neck pain. The patient unable to tolerate diet. She has been throw up one time. The patient also was found to have urinary tract infection, has been taking antibiotics and ID consult was obtained. The patient is going to go for LP. Currently, no fever and no chills. OBJECTIVE: VITAL SIGNS: Blood pressure 100/40, pulse 74, and respirations 18. SKIN: Good skin turgor. HEENT: NAD. CHEST: Bilateral clear. CARDIOVASCULAR: Regular rhythm. No gallop. No murmur. ABDOMEN: Soft. EXTREMITIES: CCE. NEUROLOGIC: No focal deficit. ASSESSMENT AND PLAN: 1. Recurrent headache. 2. Possible meningitis. 3. Urinary tract infection. 4. Recurrent nausea and vomiting. 5. Abdominal pain. We will continue IV fluid. Start IV antibiotics. ID is on consult. Continue Neurontin and ibuprofen. Cruz Capone M.D. DR: KEYLA JOB#: [id number] CC:
[2016-10-19] VITALS: BP 121/75
[2016-10-19] MEDS: HYDROmorphone 1mg/ml Carpuject IVP PRN ×4 (01:48→18:57)
[2016-10-19] MEDS: Vancomycin 1250mg/D5W 275ml IVPB SCH ×4 (03:35→16:33)
[2016-10-19 03:37] VITALS: BP 123/68
[2016-10-19] MEDS: D5W IV SCH ×3 (05:12→22:46)
[2016-10-19] MEDS: ACYCLOVIR IV SCH ×3 (05:12→22:46)
[2016-10-19 05:27] LABS: BASOPHILS % (AUTO) 0.4 % (0.0-2.0); EOSINOPHILS % (AUTO) 1.4 % (0.0-3.0); LYMPHOCYTES % (AUTO) 16.5 % (20.0-45.0); MEAN CORPUSCULAR HEMOGLOBIN 25.6 PG (27.0-31.0); MEAN CORPUSCULAR HGB CONC 32.4 G/DL (32.0-36.0); MEAN CORPUSCULAR VOLUME 79 FL (80-99); MEAN PLATELET VOLUME 5.3 FL (6.5-10.1); MONOCYTES % (AUTO) 10.5 % (1.0-10.0); NEUTROPHILS % (AUTO) 71.3 % (45.0-75.0); PLATELET COUNT 481 K/UL (150-450); RED BLOOD COUNT 4.72 M/UL (4.20-5.40); RED CELL DISTRIBUTION WIDTH 11.9 % (11.6-14.8); WHITE BLOOD COUNT 13.3 K/UL (4.8-10.8)
[2016-10-19 05:46] LABS: ANION GAP 10 (5-15); CALCIUM 8.9 mg/dL (8.6-10.2); CARBON DIOXIDE 29 mEQ/L (20-30); CHLORIDE 99 mEQ/L (98-107); CREATININE 0.9 mg/dL (0.5-0.9); GLOMERULAR FILTRATION RATE > 60 mL/min (>60); HEMOLYSIS 0; POTASSIUM 3.7 mEQ/L (3.4-4.9); SODIUM 138 mEQ/L (135-145)
[2016-10-19] MEDS: Cefepime HCl 2 GM in D5W 110 ML IVPB SCH ×2 (06:43→18:57)
[2016-10-19] MEDS: metroNIDAZOLE 500mg 100 ML IVPB SCH ×3 (07:12→21:34)
[2016-10-19 08:00] VITALS: BP 131/95
[2016-10-19] MEDS: Cyclobenzaprine 10mg Tab ORAL SCH ×2 (09:00→17:30)
--- NOTE | 2016-10-19 10:37 | Consultation ---
DATE OF CONSULTATION: 10/19/2016 HEAD AND NECK SURGERY/ENT CONSULTATION: REQUESTING PHYSICIAN: Skip Rod M.D. CONSULTING PHYSICIAN: Jaxon Blevins M.D. INDICATION FOR CONSULTATION: The patient with possible right parapharyngeal abscess with diagnosis of sepsis, meningitis, and urinary tract infection. She was admitted to the hospital. Head scan showing such but has not had a CT scan with contrast, which is scheduled later today per the request of the Infectious Disease doctor. PAST MEDICAL HISTORY: Dysmenorrhea. MEDICATIONS: Include vancomycin, cefepime, metronidazole, gabapentin, cyclobenzaprine, acyclovir, ceftriaxone, hydromorphone. ALLERGIES: She is allergic to penicillin. SOCIAL HISTORY: Lives with her mother. Denies smoking , drinking, or drug. PHYSICAL EXAMINATION: GENERAL: The patient is 171.18 cm, 95.25 kilograms, and BMI 32.9. HEENT: Head is normocephalic. Ears, positive light reflex. Normal canals . Nose normal. Mouth normal. I do not see any abscess in the posterior pharynx. Her airway is fine. NECK: With palpation. No pain, but she said it is still painful in the back of her neck when she put her chin towards her chest but is better than yesterday. Her issue now is stomach pain. LABORATORY DATA: Her white count is 14.6. ASSESSMENT: 1. Possible retropharyngeal abscess on scan yesterday . 2. Sepsis. 3. Meningitis. PLAN: The patient had refused a lumbar puncture yesterday although it may probably still indicated and would be beneficial. CT scan with contrast is pending this a.m. Hopefully, this will delineate if there is an abscess that is drainable or if it is getting smaller. Per her admission, she is doing better with the medications overnight, so hopefully this will be the answer. I will continue to follow her. Please note that tomorrow I will be unavailable although was needed until 7 a.m. tomorrow morning. Please contact me. Jaxon Blevins M.D. DR: Aleksandra JOB#: [id number] CC: PILAR
[2016-10-19 12:00] VITALS: BP 135/94
--- NOTE | 2016-10-19 13:43 | GI Initial Consult Note ---
History of Present Illness General Date patient seen: Oct 19, 2016 Time patient seen: 13:43 Reason for Hospitalization: Abdominal Pain Referring physician: TUYET TINEO Reason for Consultation: ABDOMINAL PAIN, N/V Present Illness HPI This is a 21-year-old female with a history significant for Dr. neda neely when she was 16. She was in the hospital for over a month because she has some paralysis with it. She required physical therapy. She covered completely. She presents with chief complaint of any pain. Also complaining of neck and back pain. Onset today. Yesterday she had some cough and headache. She went to another hospital and was told that she had strep throat and sinusitis. She was prescribed a seven-day course of antibiotics. [place] like it was Levaquin since she was only taking it once a day. She woke up today with severe pain. 10 out of 10. Has nausea and vomiting. Any movement hurts. GI CONSULT: HPI as noted above. GI consulted for abdominal pain and N/V. Pt seen on floor, A&Ox4 but fatigue s/p recent administration of Compazine. Noted emesis in basin at bedside, no blood or coffee grounds noted. Pt stated she had min relief from zofran, but has found relief with compazine. In addition, pt also complaint of constipation with unknown last BM. Pt presents today with active N/V, leukocytosis, abnormal LFTs and hypoalbuminemia. Imaging studies noted (Neck/Heat CT, Brain/ MRI, CXR) with unremarkable results. Cervical spine MRI showed possible retropharyngeal abscess. Home Meds Active Scripts Nitrofurantoin Monohyd/M-Cryst (Nitrofurantoin [place]-Mcr 100 mg) 100 Mg Cap, 100 MG ORAL Q12H, #14 CAP Prov:SILVER SHAFFER M.D. 03/04/15 Hydrocodone/Acetaminophen 5-325* (HYDROCODONE/ACETAMINOPHEN 5-325*) 1 Each Tablet, 1 TAB ORAL Q6H Y for For Pain, #20 TAB Prov:SILVER SHAFFER M.D. 03/04/15 Med list reviewed/reconciled: Yes Allergies: Coded Allergies: PENICILLINS (Unverified Allergy, Unknown, 03/03/15) Patient History History Provided By: Patient, Medical Record PMH Narrative Past Medical History: see triage record, old chart reviewed Past Surgical History: none Pertinent Family History: none Social History: Denies: smoking Last Menstrual Period: Aug Now: No Immunizations: other Reviewed Nursing Documentation: PMH: Agreed, PSxH: Agreed Social History: Reports: smoking Review of Systems All Other Systems: limited - patient fatigued Physical Exam Vital Signs Date Time Temp Pulse Resp B/P Pulse Ox O2 Delivery O2 Flow Rate FiO2 10/15/16 23:40 97.7 104 16 124/61 97 Room Air Sp02 EP Interpretation: reviewed Labs Laboratory Tests Test 10/18/16 23:00 10/19/16 05:00 Vancomycin Level Trough 21.5 ug/mL (5.0-12.0) H White Blood Count 13.3 K/UL (4.8-10.8) H Red Blood Count 4.72 M/UL (4.20-5.40) Hemoglobin 12.1 G/DL (12.0-16.0) Hematocrit 37.3 % (37.0-47.0) Mean Corpuscular Volume 79 FL (80-99) L Mean Corpuscular Hemoglobin 25.6 PG (27.0-31.0) L Mean Corpuscular Hemoglobin Concent 32.4 G/DL (32.0-36.0) Red Cell Distribution Width 11.9 % (11.6-14.8) Platelet Count 481 K/UL (150-450) H Mean Platelet Volume 5.3 FL (6.5-10.1) L Neutrophils (%) (Auto) 71.3 % (45.0-75.0) Lymphocytes (%) (Auto) 16.5 % (20.0-45.0) L Monocytes (%) (Auto) 10.5 % (1.0-10.0) H Eosinophils (%) (Auto) 1.4 % (0.0-3.0) Basophils (%) (Auto) 0.4 % (0.0-2.0) Sodium Level 138 mEQ/L (135-145) Potassium Level 3.7 mEQ/L (3.4-4.9) Chloride Level 99 mEQ/L (98-107) Carbon Dioxide Level 29 mEQ/L (20-30) Anion Gap 10 (5-15) Blood Urea Nitrogen 5 mg/dL (7-23) L Creatinine 0.9 mg/dL (0.5-0.9) Estimat Glomerular Filtration Rate > 60 mL/min (>60) Glucose Level 140 mg/dL (74-106) H Calcium Level 8.9 mg/dL (8.6-10.2) General Appearance: no apparent distress, alert, other - fatigued Head: normocephalic EENT: normal ENT inspection Neck: supple Respiratory: normal breath sounds, no respiratory distress Cardiovascular: normal rate, tachycardia Gastrointestinal: soft, tenderness - generalized Rectal: deferred Musculoskeletal: normal inspection Neurologic: normal inspection, alert, oriented x3, responsive Psychiatric: normal inspection, judgement/insight normal Skin: normal inspection, normal color, no rash, well hydrated Lymphatic: normal inspection, no adenopathy Current Medications Current Medications Medications (Trade) Dose Ordered Sig/Jw Route PRN Reason Start Time Stop Time Status Last Admin Dose Admin Acyclovir/Dextrose (Zovirax/D5W) 275 ml @ 275 mls/hr Q8HR IV 10/16/16 15:00 11/15/16 14:59 10/19/16 05:12 Al Hydroxide/Mg Hydroxide 30 ml 30 ml Q6H PRN ORAL HEART BURN 10/17/16 11:30 11/16/16 11:29 10/19/16 06:02 Cefepime HCl 2 gm/ Dextrose 110 ml @ 220 mls/hr Q12HR@0600,1800 IVPB 10/18/16 18:00 10/25/16 17:59 10/19/16 06:43 Cyclobenzaprine HCl (Flexeril) 10 mg BID ORAL 10/16/16 18:00 11/15/16 17:59 10/18/16 07:30 Gabapentin (Neurontin) 600 mg BID ORAL 10/16/16 18:00 11/15/16 17:59 10/18/16 07:30 Hydromorphone HCl 1 mg 1 mg Q4H PRN IVP For Pain 10/16/16 10:45 10/23/16 10:44 10/19/16 10:02 Metronidazole 100 ml @ 100 mls/hr Q8HR IVPB 10/18/16 18:00 10/25/16 17:59 10/19/16 13:20 Ondansetron HCl (Zofran) 4 mg Q6H PRN IVP Nausea & Vomiting 10/16/16 07:30 11/15/16 07:29 10/19/16 10:02 Prochlorperazine (Compazine) 5 mg Q6H PRN IVP Nausea & Vomiting 10/19/16 13:00 11/18/16 12:59 10/19/16 12:51 Sodium Chloride 1,000 ml @ 100 mls/hr Q10H IV 10/16/16 11:00 11/15/16 10:59 10/18/16 22:48 Vancomycin HCl (Vanco rx to dose) 1 ea DAILY PRN MISC . 10/16/16 13:15 11/15/16 13:14 Vancomycin HCl/ Dextrose (Vancomycin/D5W) 275 ml @ 183.333 mls/hr Q12H IVPB 10/19/16 04:00 10/24/16 03:59 10/19/16 03:35 GI: Plan Problems: (1) Hypoalbuminemia (2) LFTs abnormal (3) Nausea & vomiting (4) Constipation (5) Leukocytosis (6) Abdominal pain of unknown etiology Plan ordered KUB to evaluate constipation ordered abdominal U/S to evaluate abnormal LFTs ordered Utox ordered amylase / lipase ppi bowel regime compazine prn repeat LFTs abx fu labs Discussed with Dr. Colin. Thank you for referring this patient, we will follow. Dominique Shaffer N.P. Oct 19, 2016 13:43
--- NOTE | 2016-10-19 13:48 | Diagnostic Imaging Report ---
Indications: Neck pain Technique: IV administration nonionic contrast. Spiral acquisitions obtained through the neck. Multiplanar reconstructions were generated. Total dose length product 717 mGycm. CTDI vol(s) 8, 73, 20 mGy Comparison: Reference made to cervical spine MRI 10/18/2016 Findings: The adenoids are prominent. The tonsils are slightly prominent. There is a thin strip of low attenuation posterior to the oropharynx and hypopharynx, with caudad termination at the level of the larynx that measures 20 mm transverse by 4 mm AP by approximately 105 mm craniocaudad. More cephalad, posterior to the oropharynx, this becomes larger in the AP dimension and narrower in the transverse dimension, where it measures approximately 7 mm AP by 10 mm transverse. This does not demonstrate an enhancing rim. No other abnormal fluid collections are demonstrated. There are prominent bilateral cervical nodes, with the largest right jugulodigastric node measuring 2.1 cm in length and a large left posterior triangle node also measuring 2.1 cm in diameter . Prominent supraclavicular nodes are seen on the right, measuring up to 1.7 cm in diameter. Streak artifact from dental amalgam may obscure pathology. The nasopharynx, oropharynx, hypopharynx and larynx are otherwise unremarkable. The included thyroid is unremarkable. The included upper mediastinum is unremarkable. The vascular structures are unremarkable. The included intracranial structures are unremarkable. There is bilateral ethmoid sinus disease as well as sphenoid sinus disease. The dentition in is intact. No acute fractures. Impression: Fluid within the retropharyngeal space, as described above. Appearance is concordant that seen on recent MRI. No definite rim enhancement or mass effect. Appearance is nonspecific as regards whether this represents just edema within the retropharyngeal space, versus early abscess formation. Nonetheless, concerning for infectious process, particularly in view of the associated adenopathy. Adenoidal and mild tonsillar hypertrophy, most likely reactive secondary to above Fairly extensive extensive bilateral cervical and right supraclavicular lymphadenopathy. Most likely reactive Minimal sinus disease The CT scanner at [facility] is accredited by the [employer] and the scans are performed using protocols designed to limit radiation exposure to as low as reasonably achievable to attain images of sufficient resolution adequate for diagnostic evaluation.
--- NOTE | 2016-10-19 15:26 | Diagnostic Imaging Report ---
Indication: Abdominal pain Technique: Supine view of the abdomen Comparison: none Findings: No unusual masses or calcifications. Contrast is seen in the bladder from recent CT scan. Bowel gas pattern is unremarkable Impression: No acute process
[2016-10-19] MEDS ORDERED: 1/2 NS 1000ml IV ONE (15:52)
[2016-10-19] MEDS ORDERED: Tubing IV Secondary IV ONE (15:52)
[2016-10-19 16:00] VITALS: BP 134/73
--- NOTE | 2016-10-19 16:39 | Infectious Diseases Prog Note ---
Assessment/Plan Problems: (1) Retropharyngeal abscess Assessment & Plan: improving with current antibiotics regimen , CT neck with contrast didn't confirm abscess but fluids collection which might be infected, ENT was consulted. (2) Meningitis Assessment & Plan: improving with current antibiotics regimen, LP was not done in ED, and patient refused any further attempt, MRI of the brain was normal, but cervical spine MRI showed possible retropharyngeal abscess , also neck CT with contrast, continue cefepime, flagyl, and vancomycin with acyclovir for now, she agreed to have LP done by IR . recommend neurology consult. (3) Sepsis Assessment & Plan: due to #1, will send blood culture and start wide spectrum antibiotics therapy. (4) Leukocytosis Assessment & Plan: improving , due to the above, await blood culture , continue wide spectrum antibiotics. (5) Headache Assessment & Plan: due to the above meningitis, continue pain management as per primary. (6) Enlarged lymph node in neck Assessment & Plan: most likely reactive due to retropharyngeal fluids infection , will screen for HIV, mononucleosis, and CMV. Subjective Constitutional: Reports: anorexia, fatigue HEENT: Reports: congestion, other - sore throat Gastrointestinal/Abdominal: Reports: bloating, nausea, vomiting Neurologic: Reports: headache, weakness Psychiatric: Reports: anxiety Musculoskeletal: Reports: pain Allergies: Coded Allergies: PENICILLINS (Unverified Allergy, Unknown, 03/03/15) All Systems: reviewed and negative except above Objective Vital Signs Last 24 Hour Vital Signs Date Time Temp Pulse Resp B/P Pulse Ox O2 Delivery O2 Flow Rate FiO2 10/19/16 12:00 97.2 71 20 135/94 100 Room Air 10/19/16 10:32 96.8 10/19/16 08:00 96.8 87 20 131/95 100 Room Air 10/19/16 03:37 97.8 62 18 123/68 100 Room Air 10/19/16 00:00 97.9 63 18 121/75 100 Room Air 10/18/16 20:00 97.5 70 18 122/72 Room Air Height (Feet): 5 Height (Inches): 7.00 Weight (Pounds): 210 General Appearance: WD/WN, no acute distress HEENT: normocephalic, atraumatic, anicteric, mucous membranes moist Respiratory/Chest: chest wall non-tender, lungs clear, normal breath sounds, no respiratory distress, no accessory muscle use Cardiovascular: normal peripheral pulses, normal rate, regular rhythm, no gallop/murmur Abdomen: normal bowel sounds, soft, non tender, no organomegaly, non distended , no mass Extremities: no cyanosis, no clubbing Skin: no rash Laboratory Tests Test 10/18/16 23:00 10/19/16 05:00 Vancomycin Level Trough 21.5 ug/mL (5.0-12.0) H White Blood Count 13.3 K/UL (4.8-10.8) H Red Blood Count 4.72 M/UL (4.20-5.40) Hemoglobin 12.1 G/DL (12.0-16.0) Hematocrit 37.3 % (37.0-47.0) Mean Corpuscular Volume 79 FL (80-99) L Mean Corpuscular Hemoglobin 25.6 PG (27.0-31.0) L Mean Corpuscular Hemoglobin Concent 32.4 G/DL (32.0-36.0) Red Cell Distribution Width 11.9 % (11.6-14.8) Platelet Count 481 K/UL (150-450) H Mean Platelet Volume 5.3 FL (6.5-10.1) L Neutrophils (%) (Auto) 71.3 % (45.0-75.0) Lymphocytes (%) (Auto) 16.5 % (20.0-45.0) L Monocytes (%) (Auto) 10.5 % (1.0-10.0) H Eosinophils (%) (Auto) 1.4 % (0.0-3.0) Basophils (%) (Auto) 0.4 % (0.0-2.0) Sodium Level 138 mEQ/L (135-145) Potassium Level 3.7 mEQ/L (3.4-4.9) Chloride Level 99 mEQ/L (98-107) Carbon Dioxide Level 29 mEQ/L (20-30) Anion Gap 10 (5-15) Blood Urea Nitrogen 5 mg/dL (7-23) L Creatinine 0.9 mg/dL (0.5-0.9) Estimat Glomerular Filtration Rate > 60 mL/min (>60) Glucose Level 140 mg/dL (74-106) H Calcium Level 8.9 mg/dL (8.6-10.2) Current Medications Medications (Trade) Dose Ordered Sig/Jw Route PRN Reason Start Time Stop Time Status Last Admin Dose Admin Acyclovir/Dextrose (Zovirax/D5W) 275 ml @ 275 mls/hr Q8HR IV 10/16/16 15:00 11/15/16 14:59 10/19/16 14:02 Al Hydroxide/Mg Hydroxide 30 ml 30 ml Q6H PRN ORAL HEART BURN 10/17/16 11:30 11/16/16 11:29 10/19/16 06:02 Cefepime HCl 2 gm/ Dextrose 110 ml @ 220 mls/hr Q12HR@0600,1800 IVPB 10/18/16 18:00 10/25/16 17:59 10/19/16 06:43 Cyclobenzaprine HCl (Flexeril) 10 mg BID ORAL 10/16/16 18:00 11/15/16 17:59 10/18/16 07:30 Gabapentin (Neurontin) 600 mg BID ORAL 10/16/16 18:00 11/15/16 17:59 10/18/16 07:30 Hydromorphone HCl 1 mg 1 mg Q4H PRN IVP For Pain 10/16/16 10:45 10/23/16 10:44 10/19/16 10:02 Metronidazole 100 ml @ 100 mls/hr Q8HR IVPB 10/18/16 18:00 10/25/16 17:59 10/19/16 13:20 Ondansetron HCl (Zofran) 4 mg Q6H PRN IVP Nausea & Vomiting 10/16/16 07:30 11/15/16 07:29 10/19/16 16:33 Prochlorperazine (Compazine) 5 mg Q6H PRN IVP Nausea & Vomiting 10/19/16 13:00 11/18/16 12:59 10/19/16 12:51 Sodium Chloride 1,000 ml @ 100 mls/hr Q10H IV 10/16/16 11:00 11/15/16 10:59 10/19/16 16:34 Vancomycin HCl (Vanco rx to dose) 1 ea DAILY PRN MISC . 10/16/16 13:15 11/15/16 13:14 Vancomycin HCl/ Dextrose (Vancomycin/D5W) 275 ml @ 183.333 mls/hr Q12H IVPB 10/19/16 04:00 10/24/16 03:59 10/19/16 16:33 Aliyah Cervantes M.D. Oct 19, 2016 16:39
[2016-10-19 20:00] VITALS: BP 135/75
--- NOTE | 2016-10-19 21:34 | Nephrology Progress Note ---
Assessment/Plan Problem List: (1) Leukocytosis (2) Sepsis (3) Meningitis (4) Headache (5) Enlarged lymph node in neck (6) Retropharyngeal abscess Plan ID following and ENT following. Empiric abx. f/u cx's. Subjective Subjective afebrile.pain better. Objective Objective Last 24 Hour Vital Signs Date Time Temp Pulse Resp B/P Pulse Ox O2 Delivery O2 Flow Rate FiO2 10/19/16 16:00 98.2 93 22 134/73 100 Room Air 10/19/16 12:00 97.2 71 20 135/94 100 Room Air 10/19/16 10:32 96.8 10/19/16 08:00 96.8 87 20 131/95 100 Room Air 10/19/16 03:37 97.8 62 18 123/68 100 Room Air 10/19/16 00:00 97.9 63 18 121/75 100 Room Air Intake and Output 10/18/16 10/19/16 19:00 07:00 Intake Total 2014.218 ml 1701.666 ml Balance 2014.218 ml 1701.666 ml Intake Oral 360 ml 475 ml IV Total 1654.218 ml 1226.666 ml # Voids 3 2 # Bowel Movements 1 Laboratory Tests 10/18/16 23:00: Vancomycin Level Trough 21.5H 10/19/16 05:00: White Blood Count 13.3H, Red Blood Count 4.72, Hemoglobin 12.1, Hematocrit 37.3 , Mean Corpuscular Volume 79L, Mean Corpuscular Hemoglobin 25.6L, Mean Corpuscular Hemoglobin Concent 32.4, Red Cell Distribution Width 11.9, Platelet Count 481H, Mean Platelet Volume 5.3L, Neutrophils (%) (Auto) 71.3, Lymphocytes (%) (Auto) 16.5L, Monocytes (%) (Auto) 10.5H, Eosinophils (%) (Auto) 1.4, Basophils (%) (Auto) 0.4, Sodium Level 138, Potassium Level 3.7, Chloride Level 99, Carbon Dioxide Level 29, Anion Gap 10, Blood Urea Nitrogen 5L, Creatinine 0.9, Estimat Glomerular Filtration Rate > 60, Glucose Level 140H, Calcium Level 8.9 10/19/16 06:00: Cytomegalovirus DNA PCR copies/ml [Pending], Cytomegalovirus DNA PCR log10 [ Pending], Monoscreen [Pending], HIV (1&2) Antibody Rapid Negative 10/19/16 19:30: Urine Opiates Screen Negative, Urine Barbiturates Screen Negative, Phencyclidine (PCP) Screen Negative, Urine Amphetamines Screen Negative, Urine Benzodiazepines Screen Negative, Urine Cocaine Screen Negative, Urine Marijuana (THC) Screen PositiveH Height (Feet): 5 Height (Inches): 7.00 Weight (Pounds): 210 General Appearance: no apparent distress Cardiovascular: normal rate, regular rhythm Respiratory/Chest: lungs clear Abdomen: non tender, soft Extremities: non-pitting Neurologic: alert, oriented x 3 CLAUDIA PAIGE Oct 19, 2016 21:34
[2016-10-20] VITALS (7 sets, daily range): BP systolic 130–144; BP diastolic 61–82
[2016-10-20] MEDS: HYDROmorphone 1mg/ml Carpuject IVP PRN ×5 (00:11→20:23)
[2016-10-20] MEDS: Vancomycin 1250mg/D5W 275ml IVPB SCH ×6 (03:04→18:21)
[2016-10-20] MEDS: metroNIDAZOLE 500mg 100 ML IVPB SCH ×3 (04:32→20:23)
[2016-10-20] MEDS: Cefepime HCl 2 GM in D5W 110 ML IVPB SCH ×2 (05:33→15:55)
[2016-10-20] MEDS: D5W IV SCH ×3 (06:19→22:08)
[2016-10-20] MEDS: ACYCLOVIR IV SCH ×3 (06:19→22:08)
[2016-10-20 06:49] LABS: MEAN CORPUSCULAR HEMOGLOBIN 25.9 PG (27.0-31.0); MEAN CORPUSCULAR VOLUME 78 FL (80-99); MEAN PLATELET VOLUME 5.1 FL (6.5-10.1); PLATELET COUNT 532 K/UL (150-450); RED BLOOD COUNT 4.62 M/UL (4.20-5.40); RED CELL DISTRIBUTION WIDTH 11.6 % (11.6-14.8); WHITE BLOOD COUNT 18.1 K/UL (4.8-10.8)
[2016-10-20 07:23] LABS: ALANINE AMINOTRANSFERASE 14 U/L (3-33); AMYLASE 27 U/L (10-110); ANION GAP 16 (5-15); ASPARTATE AMINO TRANSFERASE 16 U/L (5-40); CALCIUM 8.9 mg/dL (8.6-10.2); CARBON DIOXIDE 26 mEQ/L (20-30); CHLORIDE 97 mEQ/L (98-107); GLOMERULAR FILTRATION RATE > 60 mL/min (>60); HEMOLYSIS 23; LIPASE 11 U/L (< 60); SODIUM 139 mEQ/L (135-145); TOTAL PROTEIN 6.6 g/dL (6.6-8.7)
--- NOTE | 2016-10-20 07:34 | General Progress Note ---
Progress Note Progress Note ENT note CT scan bilateral lymphadenopathy-no distint collection of fluid Continue present treatment. Will continue to follow This is only a CT scan check, I did not see pt today-I am unavailable to see pts today. HELENA GUARDADO Oct 20, 2016 07:34
[2016-10-20] MEDS: Cyclobenzaprine 10mg Tab ORAL SCH ×2 (08:11→18:21)
--- NOTE | 2016-10-20 11:02 | GI Progress Note ---
Assessment/Plan Problems: (1) Cyclic vomiting syndrome ICD Codes: G43.A0 - Cyclical vomiting, not intractable SNOMED: 09656781 (2) Abdominal pain of unknown etiology ICD Codes: R10.9 - Unspecified abdominal pain SNOMED: 401354165 (3) Nausea & vomiting ICD Codes: R11.2 - Nausea with vomiting, unspecified SNOMED: 39634398 (4) Hypoalbuminemia ICD Codes: E88.09 - Other disorders of plasma-protein metabolism, not elsewhere classified SNOMED: 997864393 (5) Constipation ICD Codes: K59.00 - Constipation, unspecified SNOMED: 44362907 Status: unchanged Status Narrative Discussed with Dr. Colin. Assessment/Plan KUB >> no fecal impaction Utox positive for marijuana despite denying drug use amylase / lipase WNL symptomatic treatment CLD, adv as tolerated fu abd US ppi bowel regime compazine prn, consider reglan if patient has persistent vomiting repeat LFTs abx fu labs Subjective Subjective nausea vomiting bile, denies hematemesis or coffee grounds BM x 1 this morning, watery denies smoking, ETOH, drug use. Objective Last 24 Hour Vital Signs Date Time Temp Pulse Resp B/P Pulse Ox O2 Delivery O2 Flow Rate FiO2 10/20/16 08:00 97.2 64 18 131/70 100 Room Air 10/20/16 07:01 98.3 10/20/16 04:00 98.3 69 20 130/61 100 Room Air 10/20/16 00:00 98.1 77 18 136/67 100 Room Air 10/19/16 20:00 98.4 70 18 135/75 99 Room Air 10/19/16 16:00 98.2 93 22 134/73 100 Room Air 10/19/16 12:00 97.2 71 20 135/94 100 Room Air Intake and Output 10/19/16 10/20/16 19:00 07:00 Intake Total 1525.000 ml 1085 ml Balance 1525.000 ml 1085 ml Intake Oral 240 ml IV Total 1285.000 ml 1085 ml # Voids 3 6 Laboratory Tests Test 10/19/16 19:30 10/20/16 04:50 Urine Opiates Screen Negative (NEGATIVE) Urine Barbiturates Screen Negative (NEGATIVE) Phencyclidine (PCP) Screen Negative (NEGATIVE) Urine Amphetamines Screen Negative (NEGATIVE) Urine Benzodiazepines Screen Negative (NEGATIVE) Urine Cocaine Screen Negative (NEGATIVE) Urine Marijuana (THC) Screen Positive (NEGATIVE) H White Blood Count 18.1 K/UL (4.8-10.8) H Red Blood Count 4.62 M/UL (4.20-5.40) Hemoglobin 12.0 G/DL (12.0-16.0) Hematocrit 36.2 % (37.0-47.0) L Mean Corpuscular Volume 78 FL (80-99) L Mean Corpuscular Hemoglobin 25.9 PG (27.0-31.0) L Mean Corpuscular Hemoglobin Concent 33.0 G/DL (32.0-36.0) Red Cell Distribution Width 11.6 % (11.6-14.8) Platelet Count 532 K/UL (150-450) H Mean Platelet Volume 5.1 FL (6.5-10.1) L Neutrophils (%) (Auto) % (45.0-75.0) Lymphocytes (%) (Auto) % (20.0-45.0) Monocytes (%) (Auto) % (1.0-10.0) Eosinophils (%) (Auto) % (0.0-3.0) Basophils (%) (Auto) % (0.0-2.0) Neutrophils % (Manual) Pending Lymphocytes % (Manual) Pending Platelet Estimate Pending Platelet Morphology Pending Sodium Level 139 mEQ/L (135-145) Potassium Level 4.0 mEQ/L (3.4-4.9) Chloride Level 97 mEQ/L (98-107) L Carbon Dioxide Level 26 mEQ/L (20-30) Anion Gap 16 (5-15) H Blood Urea Nitrogen 5 mg/dL (7-23) L Creatinine 1.0 mg/dL (0.5-0.9) H Estimat Glomerular Filtration Rate > 60 mL/min (>60) Glucose Level 108 mg/dL (74-106) H Calcium Level 8.9 mg/dL (8.6-10.2) Total Bilirubin 0.3 mg/dL (0.0-1.2) Aspartate Amino Transf (AST/SGOT) 16 U/L (5-40) Alanine Aminotransferase (ALT/SGPT) 14 U/L (3-33) Alkaline Phosphatase 104 U/L (35-104) Total Protein 6.6 g/dL (6.6-8.7) Albumin 3.3 g/dL (3.5-5.2) L Globulin 3.3 g/dL Albumin/Globulin Ratio 1.0 (1.0-2.7) Amylase Level 27 U/L (10-110) Lipase 11 U/L (< 60) Height (Feet): 5 Height (Inches): 7.00 Weight (Pounds): 210 General Appearance: no apparent distress, alert, obese Cardiovascular: normal rate Respiratory/Chest: normal breath sounds, no respiratory distress Abdominal Exam: normal bowel sounds, non tender, soft Extremities: normal range of motion Dominique Schneider N.P. Oct 20, 2016 11:02
[2016-10-20 11:20] LABS: BAND NEUTROPHILS % (MANUAL) 1 % (0-8); BASOPHILS % (MANUAL) 0 % (0-2); EOSINOPHILS % (MANUAL) 0 % (0-3); LYMPHOCYTES % (MANUAL) 12 % (20-45); NEUTROPHILS % (MANUAL) 81 % (45-75); PLATELET ESTIMATE INCREASED; PLATELET MORPHOLOGY NORMAL; TOTAL CELLS COUNTED 100
--- NOTE | 2016-10-20 11:24 | Nephrology Progress Note ---
Assessment/Plan Problem List: (1) Headache (2) Leukocytosis (3) Sepsis (4) Meningitis (5) Retropharyngeal abscess (6) Enlarged lymph node in neck Plan ID F/U Continue abx per ID Empiric abx. Continue pain management. AM labs Subjective Constitutional: Reports: weakness HEENT: Denies: blurred vision, double vision, ear discharge, ear pain, eye pain , mouth pain, mouth swelling, no symptoms, nose congestion, nose pain, other, tearing, throat pain, throat swelling Genitourinary: Denies: burning, discharge, flank pain, frequency, hematuria, incontinence, no symptoms, other, pain, urgency Neurologic/Psychiatric: Reports: headache Subjective In bed, states that she just got back from MRI and that she has a headache Objective Objective Last 24 Hour Vital Signs Date Time Temp Pulse Resp B/P Pulse Ox O2 Delivery O2 Flow Rate FiO2 10/20/16 08:00 97.2 64 18 131/70 100 Room Air 10/20/16 07:01 98.3 10/20/16 04:00 98.3 69 20 130/61 100 Room Air 10/20/16 00:00 98.1 77 18 136/67 100 Room Air 10/19/16 20:00 98.4 70 18 135/75 99 Room Air 10/19/16 16:00 98.2 93 22 134/73 100 Room Air 10/19/16 12:00 97.2 71 20 135/94 100 Room Air Intake and Output 10/19/16 10/20/16 19:00 07:00 Intake Total 1525.000 ml 1085 ml Balance 1525.000 ml 1085 ml Intake Oral 240 ml IV Total 1285.000 ml 1085 ml # Voids 3 6 Laboratory Tests 10/19/16 19:30: Urine Opiates Screen Negative, Urine Barbiturates Screen Negative, Phencyclidine (PCP) Screen Negative, Urine Amphetamines Screen Negative, Urine Benzodiazepines Screen Negative, Urine Cocaine Screen Negative, Urine Marijuana (THC) Screen PositiveH 10/20/16 04:50: White Blood Count 18.1H, Red Blood Count 4.62, Hemoglobin 12.0, Hematocrit 36.2L , Mean Corpuscular Volume 78L, Mean Corpuscular Hemoglobin 25.9L, Mean Corpuscular Hemoglobin Concent 33.0, Red Cell Distribution Width 11.6, Platelet Count 532H, Mean Platelet Volume 5.1L, Neutrophils (%) (Auto) , Lymphocytes (%) (Auto) , Monocytes (%) (Auto) , Eosinophils (%) (Auto) , Basophils (%) (Auto) , Differential Total Cells Counted 100, Neutrophils % (Manual) 81H, Lymphocytes % (Manual) 12L, Monocytes % (Manual) 6, Eosinophils % (Manual) 0, Basophils % ( Manual) 0, Band Neutrophils 1, Platelet Estimate IncreasedH, Platelet Morphology Normal, Red Blood Cell Morphology Normal, Sodium Level 139, Potassium Level 4.0, Chloride Level 97L, Carbon Dioxide Level 26, Anion Gap 16H , Blood Urea Nitrogen 5L, Creatinine 1.0H, Estimat Glomerular Filtration Rate > 60, Glucose Level 108H, Calcium Level 8.9, Total Bilirubin 0.3, Aspartate Amino Transf (AST/SGOT) 16, Alanine Aminotransferase (ALT/SGPT) 14, Alkaline Phosphatase 104, Total Protein 6.6, Albumin 3.3L, Globulin 3.3, Albumin/ Globulin Ratio 1.0, Amylase Level 27, Lipase 11 Height (Feet): 5 Height (Inches): 7.00 Weight (Pounds): 210 General Appearance: no apparent distress, alert EENT: normal ENT inspection Neck: normal alignment, supple Cardiovascular: normal rate, regular rhythm, no JVD Respiratory/Chest: lungs clear, normal breath sounds, no respiratory distress Abdomen: non tender, soft Extremities: non-tender, normal inspection Neurologic: alert, oriented x 3, responsive, normal mood/affect Virginie Hernandez N.P. Oct 20, 2016 11:23
[2016-10-20 12:15] LABS: MONOTEST Negative (Negative)
--- NOTE | 2016-10-20 14:34 | Diagnostic Imaging Report ---
Indications: Abdominal pain, nausea and vomiting, elevated renal function tests Technique: Transabdominal real-time grayscale and duplex Doppler imaging of the upper abdomen and retroperitoneum was performed. Findings: Comparison: None. Liver normal size and surface contour, parenchymal echogenicity. No focal lesions. Gallbladder unremarkable. No intraluminal stones or sludge. No mural thickening or adjacent fluid collections. Sonographic Ngo sign negative.. Bile ducts normal caliber. Common bile duct 5 mm. Pancreas obscured. Spleen unremarkable. Right kidney unremarkable. Left kidney unremarkable. Abdominal aorta, intrahepatic portion of inferior vena cava patent, normal caliber. Duplex Doppler imaging demonstrates antegrade flow in portal, hepatic veins. No ascites. IMPRESSION: Pancreas obscured Otherwise negative.
--- NOTE | 2016-10-20 17:59 | Infectious Diseases Prog Note ---
Assessment/Plan Problems: (1) Retropharyngeal abscess Assessment & Plan: improving with current antibiotics regimen , CT neck with contrast didn't confirm abscess but fluids collection which might be infected, ENT was consulted. (2) Meningitis Assessment & Plan: improving with current antibiotics regimen, LP was not done in ED, and patient refused any further attempt, MRI of the brain was normal, but cervical spine MRI showed possible retropharyngeal abscess , also neck CT with contrast, continue cefepime, flagyl, and vancomycin with acyclovir for now, she agreed to have LP done by IR . recommend neurology consult. (3) Sepsis Assessment & Plan: due to #1, will send blood culture and start wide spectrum antibiotics therapy. (4) Leukocytosis Assessment & Plan: improving , due to the above, await blood culture , continue wide spectrum antibiotics. (5) Headache Assessment & Plan: due to the above meningitis, continue pain management as per primary. (6) Enlarged lymph node in neck Assessment & Plan: most likely reactive due to retropharyngeal fluids infection , will screen for HIV, mononucleosis, and CMV. 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 Assessment & Plan: already on iv acyclovir, suspect reactivation due to current illness Subjective Constitutional: Reports: anorexia, fatigue HEENT: Reports: congestion, other - pain in the throat Gastrointestinal/Abdominal: Reports: nausea, vomiting Neurologic: Reports: headache, weakness Allergies: Coded Allergies: PENICILLINS (Unverified Allergy, Unknown, 03/03/15) All Systems: reviewed and negative except above Objective Vital Signs Last 24 Hour Vital Signs Date Time Temp Pulse Resp B/P Pulse Ox O2 Delivery O2 Flow Rate FiO2 10/20/16 16:26 97.3 10/20/16 16:00 96.1 66 20 136/75 97 Room Air 10/20/16 12:12 97.3 62 18 131/72 98 Room Air 10/20/16 08:00 97.2 64 18 131/70 100 Room Air 10/20/16 04:00 98.3 69 20 130/61 100 Room Air 10/20/16 00:00 98.1 77 18 136/67 100 Room Air 10/19/16 20:00 98.4 70 18 135/75 99 Room Air Height (Feet): 5 Height (Inches): 7.00 Weight (Pounds): 210 General Appearance: WD/WN, no acute distress HEENT: normocephalic, atraumatic, anicteric, mucous membranes moist Respiratory/Chest: chest wall non-tender, lungs clear, normal breath sounds, no respiratory distress, no accessory muscle use Cardiovascular: normal peripheral pulses, normal rate, regular rhythm Abdomen: normal bowel sounds, soft, non tender, no organomegaly, non distended Extremities: no cyanosis, no clubbing Skin: no rash, no lesions Neurologic/Psychiatric: alert, oriented x 3, responsive Laboratory Tests Test 10/19/16 19:30 10/20/16 04:50 10/20/16 15:45 Urine Opiates Screen Negative (NEGATIVE) Urine Barbiturates Screen Negative (NEGATIVE) Phencyclidine (PCP) Screen Negative (NEGATIVE) Urine Amphetamines Screen Negative (NEGATIVE) Urine Benzodiazepines Screen Negative (NEGATIVE) Urine Cocaine Screen Negative (NEGATIVE) Urine Marijuana (THC) Screen Positive (NEGATIVE) H White Blood Count 18.1 K/UL (4.8-10.8) H Red Blood Count 4.62 M/UL (4.20-5.40) Hemoglobin 12.0 G/DL (12.0-16.0) Hematocrit 36.2 % (37.0-47.0) L Mean Corpuscular Volume 78 FL (80-99) L Mean Corpuscular Hemoglobin 25.9 PG (27.0-31.0) L Mean Corpuscular Hemoglobin Concent 33.0 G/DL (32.0-36.0) Red Cell Distribution Width 11.6 % (11.6-14.8) Platelet Count 532 K/UL (150-450) H Mean Platelet Volume 5.1 FL (6.5-10.1) L Neutrophils (%) (Auto) % (45.0-75.0) Lymphocytes (%) (Auto) % (20.0-45.0) Monocytes (%) (Auto) % (1.0-10.0) Eosinophils (%) (Auto) % (0.0-3.0) Basophils (%) (Auto) % (0.0-2.0) Differential Total Cells Counted 100 Neutrophils % (Manual) 81 % (45-75) H Lymphocytes % (Manual) 12 % (20-45) L Monocytes % (Manual) 6 % (1-10) Eosinophils % (Manual) 0 % (0-3) Basophils % (Manual) 0 % (0-2) Band Neutrophils 1 % (0-8) Platelet Estimate Increased H Platelet Morphology Normal Red Blood Cell Morphology Normal Sodium Level 139 mEQ/L (135-145) Potassium Level 4.0 mEQ/L (3.4-4.9) Chloride Level 97 mEQ/L (98-107) L Carbon Dioxide Level 26 mEQ/L (20-30) Anion Gap 16 (5-15) H Blood Urea Nitrogen 5 mg/dL (7-23) L Creatinine 1.0 mg/dL (0.5-0.9) H Estimat Glomerular Filtration Rate > 60 mL/min (>60) Glucose Level 108 mg/dL (74-106) H Calcium Level 8.9 mg/dL (8.6-10.2) Total Bilirubin 0.3 mg/dL (0.0-1.2) Aspartate Amino Transf (AST/SGOT) 16 U/L (5-40) Alanine Aminotransferase (ALT/SGPT) 14 U/L (3-33) Alkaline Phosphatase 104 U/L (35-104) Total Protein 6.6 g/dL (6.6-8.7) Albumin 3.3 g/dL (3.5-5.2) L Globulin 3.3 g/dL Albumin/Globulin Ratio 1.0 (1.0-2.7) Amylase Level 27 U/L (10-110) Lipase 11 U/L (< 60) Vancomycin Level Trough 3.5 ug/mL (5.0-12.0) L Current Medications Medications (Trade) Dose Ordered Sig/Jw Route PRN Reason Start Time Stop Time Status Last Admin Dose Admin Acyclovir/Dextrose (Zovirax/D5W) 275 ml @ 275 mls/hr Q8HR IV 10/16/16 15:00 11/15/16 14:59 10/20/16 14:45 Al Hydroxide/Mg Hydroxide 30 ml 30 ml Q6H PRN ORAL HEART BURN 10/17/16 11:30 11/16/16 11:29 10/19/16 06:02 Ascorbic Acid 500 mg 500 mg TWICE A DAY ORAL 10/20/16 18:00 11/19/16 17:59 Cefepime HCl/ Dextrose (Maxipime/D5W) 110 ml @ 220 mls/hr Q8HR@0000,0800,1600 IVPB 10/20/16 16:00 10/25/16 17:59 10/20/16 15:55 Cyclobenzaprine HCl (Flexeril) 10 mg BID ORAL 10/16/16 18:00 11/15/16 17:59 10/18/16 07:30 Gabapentin (Neurontin) 600 mg BID ORAL 10/16/16 18:00 11/15/16 17:59 10/18/16 07:30 Hydromorphone HCl 1 mg 1 mg Q4H PRN IVP For Pain 10/16/16 10:45 10/23/16 10:44 10/20/16 15:56 Metronidazole (Flagyl) 100 ml @ 100 mls/hr Q8HR IVPB 10/18/16 18:00 10/25/16 17:59 10/20/16 13:31 Ondansetron HCl (Zofran) 4 mg Q6H PRN IVP Nausea & Vomiting 10/16/16 07:30 11/15/16 07:29 10/20/16 01:15 Prochlorperazine 5 mg 5 mg Q6H PRN IVP Nausea & Vomiting 10/19/16 13:00 11/18/16 12:59 10/20/16 14:45 Sodium Chloride 1,000 ml @ 100 mls/hr Q10H IV 10/16/16 11:00 11/15/16 10:59 10/20/16 15:58 Vancomycin HCl (Vanco rx to dose) 1 ea DAILY PRN MISC . 10/16/16 13:15 11/15/16 13:14 Vancomycin HCl/ Dextrose (Vancomycin/D5W) 275 ml @ 183.333 mls/hr Q8HR IVPB 10/20/16 19:00 10/25/16 18:59 Aliyah Cervantes M.D. Oct 20, 2016 17:59
[2016-10-20] MEDS: Ascorbic Acid 500mg tab ORAL SCH (18:21)
--- NOTE | 2016-10-20 23:38 | Progress Note ---
DATE: 10/20/2016 SUBJECTIVE: This is a 21-year-old female, who is currently awake and comfortable. I had LP done, results are not out, she tried to tolerate the diet. Nausea and vomiting has resolved. OBJECTIVE: VITAL SIGNS: Stable. CHEST: Bilaterally clear. CARDIOVASCULAR: Regular rhythm. ABDOMEN: Soft. EXTREMITIES: CCE. ASSESSMENT AND PLAN: 1. Encephalopathy. 2. Recurrent nausea and vomiting. 3. Obesity. 4. The patient currently asking for vitamin C. 5. We will encourage advance the diet. 6. We will add [id number] diet. 7. Add vitamin C. 8. Continue IV hydration. 9. Awaiting for LP results. Cruz Capone M.D. DR: PEARL JOB#: [id number] CC:
[2016-10-21] MEDS: Cefepime HCl 2 GM in D5W 110 ML IVPB SCH ×2 (00:25→08:04)
[2016-10-21] MEDS: HYDROmorphone 1mg/ml Carpuject IVP PRN ×3 (00:26→09:07)
[2016-10-21 04:00] VITALS: BP 139/79
[2016-10-21] MEDS: ACYCLOVIR IV SCH ×2 (04:27→13:17)
[2016-10-21] MEDS: D5W IV SCH ×2 (04:27→13:17)
[2016-10-21] MEDS: metroNIDAZOLE 500mg 100 ML IVPB SCH ×2 (05:24→14:04)
[2016-10-21] MEDS: Vancomycin 1250mg/D5W 275ml IVPB SCH ×4 (06:29→14:00)
[2016-10-21] MEDS: Cyclobenzaprine 10mg Tab ORAL SCH ×2 (08:04→18:00)
[2016-10-21] MEDS: Ascorbic Acid 500mg tab ORAL SCH ×2 (08:04→18:15)
[2016-10-21 08:08] VITALS: BP 133/75
[2016-10-21 10:45] LABS: ANION GAP 16 (5-15); CALCIUM 8.7 mg/dL (8.6-10.2); CARBON DIOXIDE 27 mEQ/L (20-30); CHLORIDE 94 mEQ/L (98-107); CREATININE 0.8 mg/dL (0.5-0.9); GLOMERULAR FILTRATION RATE > 60 mL/min (>60); HEMOLYSIS 0; POTASSIUM 3.2 mEQ/L (3.4-4.9); SODIUM 137 mEQ/L (135-145)
--- NOTE | 2016-10-21 10:46 | GI Progress Note ---
Assessment/Plan Problems: (1) Cyclic vomiting syndrome ICD Codes: G43.A0 - Cyclical vomiting, not intractable SNOMED: 78656468 (2) Abdominal pain of unknown etiology ICD Codes: R10.9 - Unspecified abdominal pain SNOMED: 957232102 (3) Nausea & vomiting ICD Codes: R11.2 - Nausea with vomiting, unspecified SNOMED: 80484926 (4) Hypoalbuminemia ICD Codes: E88.09 - Other disorders of plasma-protein metabolism, not elsewhere classified SNOMED: 399247204 (5) Constipation ICD Codes: K59.00 - Constipation, unspecified SNOMED: 45783476 Status: stable Status Narrative Discussed with Dr. Colin. Assessment/Plan Abd U/S negative KUB >> no fecal impaction Utox positive for marijuana despite denying drug use amylase / lipase WNL ok for DC per GI standpoint symptomatic treatment regular diet, tolerating ppi bowel regime compazine prn, consider reglan if patient has persistent vomiting repeat LFTs abx fu labs Subjective Subjective less nauseated no vomiting ready to go home denies smoking, ETOH, drug use. Objective Last 24 Hour Vital Signs Date Time Temp Pulse Resp B/P Pulse Ox O2 Delivery O2 Flow Rate FiO2 10/21/16 09:03 97.5 10/21/16 09:03 97.5 10/21/16 08:08 97.5 71 20 133/75 100 Room Air 10/21/16 04:58 98.7 10/21/16 04:00 98.5 76 20 139/79 98 Room Air 10/20/16 23:56 98.7 82 20 144/82 96 Room Air 10/20/16 20:00 98.4 74 20 141/73 96 Room Air 10/20/16 16:00 96.1 66 20 136/75 97 Room Air 10/20/16 12:12 97.3 62 18 131/72 98 Room Air Intake and Output 10/20/16 10/21/16 19:00 07:00 Intake Total 910 ml 2924.66 ml Balance 910 ml 2924.66 ml Intake Oral 1240 ml IV Total 910 ml 1684.66 ml # Voids 3 1 Laboratory Tests Test 10/20/16 15:45 10/21/16 09:40 Vancomycin Level Trough 3.5 ug/mL (5.0-12.0) L Sodium Level Pending Potassium Level Pending Chloride Level Pending Carbon Dioxide Level Pending Blood Urea Nitrogen Pending Creatinine Pending Estimat Glomerular Filtration Rate Pending Glucose Level Pending Calcium Level Pending Height (Feet): 5 Height (Inches): 7.00 Weight (Pounds): 210 General Appearance: no apparent distress, alert Cardiovascular: normal rate Respiratory/Chest: normal breath sounds, no respiratory distress Abdominal Exam: normal bowel sounds, non tender Extremities: normal range of motion Objective Abdominal U/S negative Dominique Schneider N.P. Oct 21, 2016 10:46
[2016-10-21 12:00] VITALS: BP 135/58
--- NOTE | 2016-10-21 15:00 | Infectious Diseases Prog Note ---
Assessment/Plan Problems: (1) Retropharyngeal abscess Assessment & Plan: improving with current antibiotics regimen , CT neck with contrast didn't confirm abscess but fluids collection which might be infected, will switch to oral levaquin and flagyl , and follow up with ENT as an outpatient (2) Meningitis Assessment & Plan: less likely LP was done by IR with no culture was sent, but she was already on wide spectrum antibiotics , MRI of the brain was normal , but cervical spine MRI showed possible retropharyngeal abscess , also neck CT with contrast, improved on cefepime, flagyl, and vancomycin with acyclovir , CSF fluid is negative for HSV, curtis D/C acyclovir and switch to oral levaquin with flagyl. (3) Leukocytosis Assessment & Plan: improving , due to the above, blood culture is negative , continue wide spectrum antibiotics. (4) Headache Assessment & Plan: resolved, due to the above , continue pain management as per primary. (5) Enlarged lymph node in neck Assessment & Plan: most likely reactive due to retropharyngeal fluids infection , will screen for HIV, mononucleosis, and CMV. 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 Assessment & Plan: already on iv acyclovir, suspect reactivation due to current illness Subjective Constitutional: Reports: fatigue HEENT: Reports: congestion Allergies: Coded Allergies: PENICILLINS (Unverified Allergy, Unknown, 03/03/15) All Systems: reviewed and negative except above Objective Vital Signs Last 24 Hour Vital Signs Date Time Temp Pulse Resp B/P Pulse Ox O2 Delivery O2 Flow Rate FiO2 10/21/16 12:00 98.0 75 20 135/58 99 Room Air 10/21/16 09:37 97.5 10/21/16 09:03 97.5 10/21/16 09:03 97.5 10/21/16 08:08 97.5 71 20 133/75 100 Room Air 10/21/16 04:00 98.5 76 20 139/79 98 Room Air 10/20/16 23:56 98.7 82 20 144/82 96 Room Air 10/20/16 20:00 98.4 74 20 141/73 96 Room Air 10/20/16 16:00 96.1 66 20 136/75 97 Room Air Height (Feet): 5 Height (Inches): 7.00 Weight (Pounds): 210 General Appearance: WD/WN, no acute distress HEENT: normocephalic, atraumatic, anicteric, mucous membranes moist Respiratory/Chest: chest wall non-tender, lungs clear, normal breath sounds, no respiratory distress, no accessory muscle use Cardiovascular: normal peripheral pulses, normal rate, regular rhythm, no gallop/murmur Abdomen: normal bowel sounds, soft, non tender, no organomegaly, non distended , no mass Extremities: no cyanosis, no clubbing Skin: no rash, no lesions, no ulcers Neurologic/Psychiatric: business services director II-XII grossly normal, no motor/sensory deficits, abnormal gait, alert, oriented x 3, responsive Laboratory Tests Test 10/20/16 15:45 10/21/16 09:40 10/21/16 13:20 Vancomycin Level Trough 3.5 ug/mL (5.0-12.0) L 2.8 ug/mL (5.0-12.0) L Sodium Level 137 mEQ/L (135-145) Potassium Level 3.2 mEQ/L (3.4-4.9) L Chloride Level 94 mEQ/L (98-107) L Carbon Dioxide Level 27 mEQ/L (20-30) Anion Gap 16 (5-15) H Blood Urea Nitrogen 5 mg/dL (7-23) L Creatinine 0.8 mg/dL (0.5-0.9) Estimat Glomerular Filtration Rate > 60 mL/min (>60) Glucose Level 114 mg/dL (74-106) H Calcium Level 8.7 mg/dL (8.6-10.2) Current Medications Medications (Trade) Dose Ordered Sig/Jw Route PRN Reason Start Time Stop Time Status Last Admin Dose Admin Al Hydroxide/Mg Hydroxide (Mylanta) 30 ml Q6H PRN ORAL HEART BURN 10/17/16 11:30 11/16/16 11:29 10/19/16 06:02 Ascorbic Acid (Vitamin C) 500 mg TWICE A DAY ORAL 10/20/16 18:00 11/19/16 17:59 10/21/16 08:04 Cyclobenzaprine HCl (Flexeril) 10 mg BID ORAL 10/16/16 18:00 11/15/16 17:59 10/21/16 08:04 Gabapentin (Neurontin) 600 mg BID ORAL 10/16/16 18:00 11/15/16 17:59 10/21/16 08:04 Hydromorphone HCl 1 mg 1 mg Q4H PRN IVP For Pain 10/16/16 10:45 10/23/16 10:44 10/21/16 09:07 Levofloxacin (Levaquin) 500 mg DAILY ORAL 10/21/16 16:00 10/28/16 15:59 Metronidazole (Flagyl) 500 mg Q8HR ORAL 10/21/16 22:00 10/28/16 21:59 Ondansetron HCl (Zofran) 4 mg Q6H PRN IVP Nausea & Vomiting 10/16/16 07:30 11/15/16 07:29 10/21/16 04:28 Prochlorperazine (Compazine) 5 mg Q6H PRN IVP Nausea & Vomiting 10/19/16 13:00 11/18/16 12:59 10/21/16 08:04 Sodium Chloride (0.45% NS 1000ml) 1,000 ml @ 100 mls/hr Q10H IV 10/16/16 11:00 11/15/16 10:59 10/21/16 11:19 Aliyah Cervantes M.D. Oct 21, 2016 15:00
[2016-10-21 15:17] LABS: CMV DNA PCR QUANT BLOOD/CSF Negative (Negative)
[2016-10-21 16:00] VITALS: BP 134/80
[2016-10-21] MEDS: Levofloxacin 500mg tab ORAL SCH (16:22)
[2016-10-21] MEDS: HYDROmorphone 4mg tab ORAL PRN ×2 (18:16→22:57)
[2016-10-21 20:00] VITALS: BP 120/51
[2016-10-21] MEDS: metroNIDAZOLE 500mg tab ORAL SCH (21:29)
[2016-10-21] MEDS ORDERED: HYDROmorphone 2mg tab ORAL PRN (23:15)
[2016-10-22] VITALS: BP 110/55
[2016-10-22 04:00] VITALS: BP 108/53
[2016-10-22] MEDS: metroNIDAZOLE 500mg tab ORAL SCH (06:04)
[2016-10-22 08:00] VITALS: BP 150/70
[2016-10-22] MEDS: Ascorbic Acid 500mg tab ORAL SCH (08:28)
[2016-10-22] MEDS: Cyclobenzaprine 10mg Tab ORAL SCH (08:28)
[2016-10-22] MEDS: Levofloxacin 500mg tab ORAL SCH (08:28)
--- NOTE | 2016-10-22 08:33 | Nephrology Progress Note ---
Assessment/Plan Problem List: (1) Leukocytosis (2) Sepsis (3) Meningitis (4) Headache (5) Enlarged lymph node in neck (6) Retropharyngeal abscess Plan ID following and ENT following. Empiric abx. f/u cx's. d/c plan for am on po abx if ok with ID. Subjective Subjective late entry for 10/21 - refusing IV access. Objective Objective Last 24 Hour Vital Signs Date Time Temp Pulse Resp B/P Pulse Ox O2 Delivery O2 Flow Rate FiO2 10/22/16 07:04 97.6 10/22/16 04:00 97.6 99 18 108/53 95 Room Air 10/22/16 00:00 97.6 106 18 110/55 96 Room Air 10/21/16 20:00 98.1 93 18 120/51 100 Room Air 10/21/16 16:00 97.7 95 19 134/80 Room Air 10/21/16 12:00 98.0 75 20 135/58 99 Room Air 10/21/16 09:37 97.5 10/21/16 09:03 97.5 10/21/16 09:03 97.5 Intake and Output 10/21/16 10/22/16 19:00 07:00 Intake Total 1766.66 ml 720 ml Balance 1766.66 ml 720 ml Intake Oral 480 ml 720 ml IV Total 1286.66 ml # Voids 2 7 # Bowel Movements 1 1 Laboratory Tests 10/21/16 09:40: Sodium Level 137, Potassium Level 3.2L, Chloride Level 94L, Carbon Dioxide Level 27, Anion Gap 16H, Blood Urea Nitrogen 5L, Creatinine 0.8, Estimat Glomerular Filtration Rate > 60, Glucose Level 114H, Calcium Level 8.7 10/21/16 13:20: Vancomycin Level Trough 2.8L Height (Feet): 5 Height (Inches): 7.00 Weight (Pounds): 210 General Appearance: no apparent distress Cardiovascular: normal rate, regular rhythm Respiratory/Chest: lungs clear Abdomen: non tender, soft CLAUDIA PAIGE Oct 22, 2016 08:33
[2016-10-22] MEDS ORDERED: METRONIDAZOLE500 MG ORAL (10:31)
[2016-10-22] MEDS ORDERED: LEVOFLOXACIN500 MG ORAL (10:31)
[2016-10-22] MEDS ORDERED: COMPAZINE5 MG PO (10:37)
[2016-10-22] MEDS ORDERED: 1/2 NS 1000ml IV ONE (11:14)
[2016-10-22] MEDS ORDERED: Tubing IV Secondary IV ONE (11:14)
--- NOTE | 2016-10-22 11:23 | GI Progress Note ---
Assessment/Plan Problems: (1) Cyclic vomiting syndrome ICD Codes: G43.A0 - Cyclical vomiting, not intractable SNOMED: 83003262 (2) Abdominal pain of unknown etiology ICD Codes: R10.9 - Unspecified abdominal pain SNOMED: 423268409 (3) Nausea & vomiting ICD Codes: R11.2 - Nausea with vomiting, unspecified SNOMED: 62081850 (4) Hypoalbuminemia ICD Codes: E88.09 - Other disorders of plasma-protein metabolism, not elsewhere classified SNOMED: 125265911 (5) Constipation ICD Codes: K59.00 - Constipation, unspecified SNOMED: 77928297 Status: stable Status Narrative Discussed with Dr. Colin. Assessment/Plan Abd U/S negative KUB >> no fecal impaction Utox positive for marijuana despite denying drug use amylase / lipase WNL ok for DC per GI standpoint rx given for Compazine 5mg prn symptomatic treatment regular diet, tolerating ppi bowel regime compazine prn, consider reglan if patient has persistent vomiting repeat LFTs abx fu labs Subjective Subjective less nauseated no vomiting ready to go home denies smoking, ETOH, drug use. Objective Last 24 Hour Vital Signs Date Time Temp Pulse Resp B/P Pulse Ox O2 Delivery O2 Flow Rate FiO2 10/22/16 09:27 97.6 10/22/16 09:27 97.6 10/22/16 08:00 97.7 91 20 150/70 99 Room Air 10/22/16 07:04 97.6 10/22/16 04:00 97.6 99 18 108/53 95 Room Air 10/22/16 00:00 97.6 106 18 110/55 96 Room Air 10/21/16 20:00 98.1 93 18 120/51 100 Room Air 10/21/16 16:00 97.7 95 19 134/80 Room Air 10/21/16 12:00 98.0 75 20 135/58 99 Room Air Intake and Output 10/21/16 10/22/16 19:00 07:00 Intake Total 1766.66 ml 720 ml Balance 1766.66 ml 720 ml Intake Oral 480 ml 720 ml IV Total 1286.66 ml # Voids 2 7 # Bowel Movements 1 1 Laboratory Tests Test 10/21/16 13:20 Vancomycin Level Trough 2.8 ug/mL (5.0-12.0) L Height (Feet): 5 Height (Inches): 7.00 Weight (Pounds): 210 General Appearance: no apparent distress, lethargic Cardiovascular: normal rate Respiratory/Chest: normal breath sounds, no respiratory distress Abdominal Exam: normal bowel sounds, non tender, soft Extremities: normal range of motion Objective Abdominal U/S negative Dominique Schneider N.P. Oct 22, 2016 11:23
--- NOTE | 2016-10-25 07:41 | Discharge Summary ---
Discharge Summary Hospital Course Date of Admission Oct 16, 2016 at 02:17 Date of Discharge Oct 22, 2016 at 11:15 Admitting Diagnosis sepsis, headache HPI Nuvia Patel is a 21 year old female who was admitted on Oct 16, 2016 at 02:17 for Sepsis, Headache Hospital Course dc summary dictated # [id number] Discharge Medications Continued Medications: Levofloxacin (Levofloxacin*) 500 Mg Tablet 500 MG ORAL DAILY for 10 Days, TAB Metronidazole* (Flagyl*) 500 Mg Tablet 500 MG ORAL EVERY 8 HOURS for 10 Days, TAB Prochlorperazine Maleate (Compazine) 5 Mg Tablet 5 MG PO TID PRN for Nausea & Vomiting, #9 TAB Discharge Condition Upon Discharge: stable Discharge Disposition Patient was discharged to Home () Discharge Diagnoses: Discharge Instructions Discharge Instructions Special Instructions I have been assigned to complete a D/C Summary on this account. I was not involved in the patient management Rina Shannon NP ([place]) Oct 25, 2016 07:41
--- NOTE | 2016-10-25 08:38 | Discharge Summary 2 SIG ---
DATE OF ADMISSION: 10/16/2016 DATE OF DISCHARGE: 10/22/2016 REASON FOR ADMISSION: 21-year-old female came to emergency room complaining of pain in the neck and the back for one day. She also had cough and headache the day before. The patient was told by care provider, that she had a strep throat and sinusitis and started on seven days of Levaquin. She woke up with severe pain, 10/10 with nausea, vomiting x1 and came for evaluation to ED. The patient with history significant for spinal meningitis at age 16. Admits to subjective fever, chills, No recent traveling. No contact with sick people. Denies hemoptysis, hematemesis. No abdominal pain, no diarrhea, no rashes. Workup in the emergency room revealed significant leukocytosis of 22.5. CT of the head revealed no evidence of bleeding, no other acute intracranial pathology. Chest x-ray revealed no acute cardiopulmonary disease. Urine toxicology screen was positive for marijuana. Attempted lumbar puncture twice in ED was unsuccessful. The patient refused further attempts. The patient was treated empirically with antibiotics for possible meningitis. and Lactic acid was within normal limits. Patient was admitted for further management. ADMITTING DIAGNOSES: 1. Possible acute meningitis. 2. Intractable headache with nausea. 3. Sepsis secondary to acute meningitis. HOSPITAL STAY: The patient admitted, ID consult requested. ID started the patient on empiric antibiotics . MRI of the brain and C-spine were ordered. MRI of the C-spine revealed retropharyngeal edema, possible abscess with adenopathy. MRI of the brain was negative except for evidence of mild sinusitis. Blood cultures were negative. Influenza screen was negative. ENT seen the patient for possible retropharyngeal abscess. ENT ordered CT of the neck with contrast, which revealed fluid collection within retropharyngeal space, edema versus early abscess formation, however there was a concern for infectious process due to the associated adenopathy. Per Infectious Disease recommendation, the patient was switched to oral Levaquin and Flagyl for additional 10 days upon discharge and to follow up with ENT as outpatient. Meningitis was less likely. Lumbar puncture was done by Interventional Radiology, no culture was sent. The patient was already on wide spectrum antibiotic such as cefepime, Flagyl, vancomycin and acyclovir. Cerebral spinal fluid culture was negative for HCV. Serology demonstrated elevated titer of IgM HCV 1 likely reactivation of prior herpes simplex type 1 infection due to the current illness as per ID. ID cleared the patient to discontinue acyclovir. Leukocytosis resolved. Pain management provided. The patient also noted abdominal pain of unknown etiology. GI consult was requested. Abdominal x-ray revealed no evidence of fecal impaction. Abdominal ultrasound was negative. The patient likely has a cyclic vomiting syndrome as per GI. Amylase and lipase were within normal limits. LFTs were stable. GI recommended symptomatic treatment: bowel regimen, PPI and antiemetic as needed with Compazine and if the Compazine not effective, tren Reglan. GI cleared for discharge. DISCHARGE DIAGNOSES: 1. Sepsis. 2. Retropharyngeal abscess. 3. Possible meningitis. 4. Recurrent type 1 herpes simplex infection. 5. Cyclic vomiting syndrome. 6. Abdominal pain of unknown etiology. 7. Constipation. DISCHARGE MEDICATIONS: See medication reconciliation list. DISCHARGE INSTRUCTIONS: The patient to follow up with the primary doctor and ENT on outpatient. The patient to continue Levaquin and Flagyl for 10 additional days. Skip Rod M.D. I have been assigned to dictate discharge summary on this account and I was not involved in the patient's management. Rina NixonEastern Niagara Hospital, Newfane DivisionFani N.P. DR: Yuliet JOB#: [id number] CC: PILAR
--- NOTE | 2016-10-29 09:00 | Progress Note ---
DATE: 10/19/2016 SUBJECTIVE: This is a 21-year-old young female who has recurrent nausea and vomiting. The patient was unable to eat anything. Her is on the tray. The patient has been trying to eat mostly fruits but still has been throwing up. Zofran is not helping. The patient was given Compazine which was helpful. The patient is currently opening her eyes. has nausea and vomiting. Her CT head is negative. The patient also has seen GI, discussed with mother who was at bedside. OBJECTIVE: VITAL SIGNS: Stable. CHEST: Bilaterally clear. CARDIOVASCULAR: Regular rhythm. ABDOMEN: Soft. EXTREMITIES: No swelling. NEUROLOGICAL: Slight weakness. ASSESSMENT: 1. Encephalopathy. 2. Recurrent nausea and vomiting. 3. Dysmenorrhea. PLAN: The patient is waiting for lumbar puncture by Radiology. Will continue IV hydration. Continue pain medication. Consider also neuro consult. Cruz Capone M.D. DR: DEANNA JOB#: [id number] CC:
== END 2016-10-22 11:15 | disposition home or self-care (01) | DRG 871 ==
LOC: EDBD 23:39 → EDUNIT# 23:39 → EMR 10-16 01:33 → 4W 10-16 02:17 → EDBEDREQ 10-16 02:23 → 4W 10-16 17:18
DX: A41.9 Sepsis, unspecified organism (principal); G03.9 Meningitis, unspecified; J39.0 Retropharyngeal and parapharyngeal abscess; B00.89 Other herpesviral infection; R51 Headache; G43.A0 Cyclical vomiting, in migraine, not intractable; R10.9 Unspecified abdominal pain; K59.00 Constipation, unspecified; Z88.0 Allergy status to penicillin; E88.09 Other disorders of plasma-protein metabolism, not elsewhere classified; R11.2 Nausea with vomiting, unspecified; E86.0 Dehydration
CPT/HCPCS: 36415; 62270; 70450; 70491; 70553; 71010; 72156; 74000; 76700; 80048; 80053; 80202; 80300; 81003; 81025; 82150; 83605; 83690; 84484; 85007; 85025; 85610; 85730; 86308; 86695; 86703; 86710; 87040; 87497; A9585; J2405